=== PATIENT | female | born 1995 | race African-American/Black ===

== ENCOUNTER 2017-05-03 20:51 | Emergency (ER) | payer OTHER ==
[2017-05-03 21:02] VITALS: BMI 31.1
--- NOTE | 2017-05-03 21:57 | PDOC ---
History of Present Illness - General Chief Complaint: Edema Stated Complaint: 37 WKS PREG, SWELLING HANDS/FEET Time Seen by Provider: 05/03/17 21:54 History Source: Patient Exam Limitations: No Limitations - History of Present Illness Initial Comments: CHIEF COMPLAINT: 22 y/o afebrile female, , approximately 37 week female with due date of 05/21/17 c/o hand and feet swelling. HISTORY OF PRESENT ILLNESS: the patient states her hands are starting to hurt and tingle from the swelling and she can't seem to get her feet to decrease no matter what she does. She states she's had the swelling for a few weeks and mentioned it to her doctor who didn't seem concerned. She denies RODRIGUEZ, neck pain , changes in vision/hearing, n/v/d, CP, SOB, hemoptysis, abd pain, back pain, hematuria, dysuria, vaginal bleeding, calf pain. Her has been uneventful so far. NURSE EMERGENCY is Dr. Galeano. Vital signs on arrival are within normal limits. REVIEW OF SYSTEMS: GENERAL/CONSTITUTIONAL: Subjective fever/chills. No weakness. No weight change. HEAD, EYES, EARS, NOSE AND THROAT: No change in vision. No ear pain or discharge. No sore throat. CARDIOVASCULAR: No chest pain or shortness of breath. RESPIRATORY: No cough, wheezing, or hemoptysis. GASTROINTESTINAL: No abd pain, nausea, vomiting, diarrhea. GENITOURINARY: No dysuria, frequency, or change in urination. MUSCULOSKELETAL: +foot, leg and hand swelling. +hand pain. No neck or back pain. SKIN: No rash or easy bruising. NEUROLOGIC: No headache, vertigo, loss of consciousness, or loss of sensation. PHYSICAL EXAM: GENERAL: The patient is awake, alert, and fully oriented, in no acute distress. The patient is well appearing, in NAD or obvious discomfort. HEAD: Normal with no signs of trauma. ENT: Pupils equal, round and reactive to light, extraocular movements intact, sclera anicteric, conjunctiva clear. Neck supple. LUNGS: Clear to auscultation bilaterally. Normal excursion. No respiratory distress or use of accessory muscles. CV: RRR, S1/S2, no MRG. Cap refill < 2 sec. ABDOMEN: Soft, non-distended, non-tender even to deep palpation, no hepatomegaly or splenomegaly, no masses. EXTREMITIES: Normal range of motion. Non pitting edema to b/l LEs and hands. Full ROM of both feet, ankles, hands, wrists. NEUROLOGICAL: Normal speech, normal gait. CN II-XII grossly intact. PSYCH: Normal mood, normal affect. SKIN: Warm, dry, normal turgor, no rashes or lesions noted. Past History - Past Medical History Allergies/Adverse Reactions: Allergies Allergy/AdvReac Type Severity Reaction Status Date / Time cephalexin Allergy Verified 05/03/17 20:58 sulfamethoxazole Allergy Verified 05/03/17 20:58 [From Bactrim] trimethoprim [From Bactrim] Allergy Verified 05/03/17 20:58 Home Medications: Ambulatory Orders Acetaminophen [Tylenol] 650 mg PO Q4H PRN #20 tablet 09/22/16 Vit Calc,Iron,Folic [ Vitamins] 1 each PO DAILY #30 tablet 09/27 Psychiatric Problems: Yes (anxiety) - Psycho/Social/Smoking Cessation Hx Anxiety: Yes Suicidal Ideation: No Smoking History: Never smoked Have you smoked in the past 12 months: No Number of Cigarettes Smoked Daily: 2 Information on smoking cessation initiated: No Hx Alcohol Use: No Drug/Substance Use Hx: No Substance Use Type: None *Physical Exam - Vital Signs Last Vital Signs Temp Pulse Resp BP Pulse Ox 98.2 F 83 18 115/70 99 05/03/17 21:00 05/03/17 21:00 05/03/17 21:00 05/03/17 21:00 05/03/17 21:00 Medical Decision Making - Medical Decision Making A/P: 22 y/o afebrile female with hand and feet swelling. She is 37 weeks . She states she has had the swelling for a few weeks. Blood pressure is normal. Plan is as follows: 1. UA/culture to check for proteinuria 2. BGM UA negative for proteinuria BP normal Glucose 72. Spoke with Dr. Melo regarding the patient The patient will be sent upstairs to L&D for monitoring. *DC/Admit/Observation/Transfer Diagnosis at time of Disposition: Normal , Swelling of lower extremity during in third trimester, Swelling of both hands - Discharge Dispostion Condition at time of disposition: Good
[2017-05-03 22:48] LABS: URINE APPEARANCE CLEAR; URINE BILIRUBIN NEGATIVE (NEGATIVE); URINE BLOOD NEGATIVE (NEGATIVE); URINE COLOR LTYELLOW; URINE GLUCOSE (UA) NEGATIVE (NEGATIVE); URINE KETONE 1+ (NEGATIVE); URINE LEUK ESTERASE TRACE (NEGATIVE); URINE NITRITE NEGATIVE (NEGATIVE); URINE PROTEIN NEGATIVE (NEGATIVE); URINE UROBILINOGEN NEGATIVE E.U./dl (0.2-1.0)
[2017-05-03 22:50] LABS: URINE BACTERIA RARE /hpf (NONE SEEN); URINE MUCUS RARE; URINE RBC 1 /hpf (0-3); URINE WBC 11 /hpf (3-5)
[2017-05-04 01:35] VITALS: TEMP 98.1
[2017-05-04 01:49] VITALS: BP 108/73; PULSE 74
== END 2017-05-04 01:20 | disposition home or self-care (01) ==
LOC: JER 20:51
DX: O26.893 Other specified pregnancy related conditions, third trimester (principal); Z3A.37 37 weeks gestation of pregnancy; M79.89 Other specified soft tissue disorders
CPT/HCPCS: 81003; 81015; 87086; 99283-25

== ENCOUNTER 2017-05-14 23:10 | Inpatient (IN) | payer OTHER ==
[2017-05-15] MEDS ORDERED: DEXTROSE 5%-LACTATED RINGERS 500 ML IV SCH ×2 (00:10→01:10)
[2017-05-15] MEDS ORDERED: BUTORPHANOL TARTRATE 1 MG/ML VIAL IVPUSH ONE ×3 (01:10→11:15)
[2017-05-15] MEDS ORDERED: PROMETHAZINE HCL 25 MG/1 ML VIAL IVPUSH ONE ×3 (01:10→11:15)
[2017-05-15] MEDS ORDERED: AMPICILLIN - 100 ML IVPB ONE (02:00)
[2017-05-15 02:08] LABS: BASOPHIL 0.3 % (0-2.0); EOSINOPHIL 1.5 % (0-4.5); MCH 28.9 pg (25.7-33.7); MCHC 33.3 g/dl (32.0-36.0); MEAN CELL VOLUME 86.8 fl (80-96); MEAN PLT VOLUME 10.9 fl (7.5-11.1); NEUTROPHILS 59.9 % (42.8-82.8); PLATELET COUNT 183 K/MM3 (134-434); RDW 13.6 % (11.6-15.6); WHITE BLOOD COUNT 5.9 K/mm3 (4.0-10.0)
[2017-05-15 02:25] VITALS: BMI 31.7
[2017-05-15 02:29] LABS: INR 0.96 (0.82-1.09); PROTHROMBIN TIME (PATIENT) 10.6 SEC (9.98-11.88)
[2017-05-15 02:32] LABS: ACTIVATED PTT 28.3 SECONDS (26.9-34.4); ANION GAP 11 (8-16); CALCIUM 8.8 mg/dL (8.5-10.1); CO2 22 mmol/L (21-32); CREATININE 0.7 mg/dL (0.55-1.02); GLUCOSE,RANDOM 81 mg/dL (74-106)
[2017-05-15 03:12] LABS: HIV 1 & 2 AB NEGATIVE; HIV 1 AGp24 NEGATIVE
[2017-05-15] MEDS ORDERED: AMPICILLIN - 2 GM in SODIUM CHLORIDE 100 ML IVPB ONE (04:00)
--- NOTE | 2017-05-15 05:54 | HP ---
Admitting History and Physical - Admission Chief Complaint: srom @1030pm, clear History of Present Illness: 22 y/o G1 at 40 weeks comes for srom . She was a transfer from [facility]. 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's, CVA, Dementia, Migraine, Multiple Sclerosis, Peripheral Neuropathy, Parkinson's, Seizure, Syncope, TIA, Vertigo, Other Cardiovascular: No: AFIB, Aneurysm, Aortic Insufficiency, Aortic Stenosis, CAD, CHF, Deep Vein Thrombosis, HTN, Hyperlipdemia, [place], Mitral Insufficiency, Mitral Stenosis, Murmur, Pulmonary Hypertension, Other Pulmonary: No: Asthma, Bronchitis, Cancer, COPD, O2 Dependent, Pneumonia, Previously Intubated, Pulmonary Embolus, Pulmonary Fibrosis, Sleep Apnea, Other Gastrointestinal: No: Ascites, Cancer, Constipation, Crohn's Disease, Diverticulitis, Diverticulosis, Esophageal Varices, Gastritis, GERD, GI Bleed, Hemorrhoids, Hiatal Hernia, Inflamatory Bowel Disease, Irritable Bowel Disease, Pancreatitis, Peptic Ulcer Disease, Ulcerative Colitis, Other Hepatobiliary: No: Cirrhosis, Cholelithiasis, Cholecystitis, Choledocholithiasis , Hepatitis A, Hepatitis B, Hepatitis C, Other Reproductive: No: Ectopic , Endometriosis, Fibroids, PID, Polycystic Ovary Syndrome, Postmenopausal, Other ...: 1 ...Para: 0 Heme/Onc: No: Anemia, B12 Deficiency, Bleeding Disorder, Cancer, Current Chemotherapy, Current Radiation Therapy, Hemochromatosis, Hypercoaguable State, Myeloproliferative Synd, Sickle Cell Disease, Sickle Cell Trait, Thrombocytopenia, Other Infectious Disease: No: AIDS, C-Diff, Herpes Zoster, HIV, MRSA, STD's, Tuberculosis, VREF, Other Psych: No: Addictions, Anxiety, Bipolar, Depression, Panic, Psychosis, Schizophrenia, Other Musculoskeletal: No: Bursitis, Chronic low back pain, Hemiparesis, Hemiplegia, Osteoarthritis, Paraplegia, Other Rheumatology: No: Fibromyalgia, Gout, Lupus, Rheumatoid Arthritis, Sarcoidosis, Vasculitis, Other ENT: No: Allergic Rhinitis, Sinusitis, Other Endocrine: No: Jono's Disease, [place]'s Disease, Diabetes Insipidus, Diabetes Mellitus, Hyperparathyroidism, Hyperthyroidism, Hypothyroidism, Osteopenia, SIADH, Other Dermatology: No: Basal Cell, Cellulitis, Eczema, Melanoma, Psoriasis, Squamous Cell, Other - Past Surgical History Past Surgical History: No: None, AAA Repair, AICD, Amputation, Appendectomy, Arthrosocopy, AV Fistula/Graft, Bariatric Surgery, Breast Biopsy, Bypass, CABG, Carotid Endarterectomy, Cataract Removal, Cholecystectomy, Colectomy, Colonoscopy, Colostomy, Craniotomy, , Cystectomy, Hernia Repair, Hysterectomy, Ileal Conduit, Ileosotomy, Joint Replacement, Kidney Transplant, Laminectomy, Liver Transplant, Mastectomy, Nephrectomy, Oopherectomy, Orchiectomy, Permanent Pacemaker, Prostatectomy, Splenectomy, Stent, Thoracotomy , TURP, Tonsillectomy, Tubal Ligation, Upper Endoscopy, Valve Replacement, Vasectomy, Vein Stripping/Ligation - Advance Directives Advance Directives: No: Living Will, Health Care Proxy, DNR, Organ Donor, Tissue Donor, MOLST - Smoking History Smoking history: Never smoked Have you smoked in the past 12 months: No Aproximately how many cigarettes per day: 2 - Alcohol/Substance Use Hx Alcohol Use: No History of Substance Use: denies: None, Cocaine, Heroin, Marijuana, Prescription , Tranquilizers - Social History Usual Living Arrangement: No: Alone, With Spouse, With Parent, With Significant Other, With Child, Assisted Living, Prison, Other Home Medications - Allergies Allergies/Adverse Reactions: Allergies Allergy/AdvReac Type Severity Reaction Status Date / Time cephalexin Allergy Verified 05/03/17 20:58 sulfamethoxazole Allergy Verified 05/03/17 20:58 [From Bactrim] trimethoprim [From Bactrim] Allergy Verified 05/03/17 20:58 - Home Medications Home Medications: Ambulatory Orders Vit Calc,Iron,Folic [ Vitamins] 1 each PO DAILY #30 tablet 09/27 Review of Systems - Review of Systems Constitutional: reports: No Symptoms Eyes: reports: No Symptoms HENT: reports: No Symptoms Neck: reports: No Symptoms Cardiovascular: reports: No Symptoms Respiratory: reports: No Symptoms Gastrointestinal: reports: No Symptoms Genitourinary: reports: No Symptoms Breasts: reports: No Symptoms Reported Musculoskeletal: reports: No Symptoms Integumentary: reports: No Symptoms Neurological: reports: No Symptoms Endocrine: reports: No Symptoms Hematology/Lymphatic: reports: No Symptoms Psychiatric: reports: No Symptoms Physical Examination Vital Signs: Vital Signs Temperature 98.1 F 07/04/17 05:00 Pulse Rate 81 05/15/17 05:00 Respiratory Rate 20 05/15/17 05:00 Blood Pressure 127/75 05/15/17 05:00 O2 Sat by Pulse Oximetry (%) Constitutional: Yes: Well Nourished Eyes: Yes: WNL HENT: Yes: WNL Neck: Yes: WNL Cardiovascular: Yes: WNL Respiratory: Yes: WNL Gastrointestinal: Yes: WNL ...Rectal Exam: Yes: WNL Renal/: Yes: WNL Breast(s): Yes: WNL Musculoskeletal: Yes: WNL Extremities: Yes: WNL Integumentary: Yes: WNL Neurological: Yes: WNL ...Motor Strength: WNL Psychiatric: Yes: WNL Labs: CBC, BMP 05/15/17 01:45 05/15/17 01:45 Assessment/Plan as as above admit labs pain meds prn ambulate
[2017-05-15] MEDS: AMPICILLIN - 100 ML IVPB SCH ×3 (05:59→15:50)
[2017-05-15] MEDS ORDERED: ELECTROLYTE-148 SOLN 1,000 ML IV SCH (06:00)
--- NOTE | 2017-05-15 06:21 | PN ---
Ante-Partal Exam - Subjective Vital Signs: Vital Signs Temperature 98.1 F 05/15/17 05:00 Pulse Rate 81 05/15/17 05:00 Respiratory Rate 20 05/15/17 05:00 Blood Pressure 127/75 05/15/17 05:00 O2 Sat by Pulse Oximetry (%) Bleeding: No Headache: No Visual changes: No Right upper quadrant pain: No - Contractions Contractions: Yes Regularity: Regular Intensity: Moderate Monitor Mode: External - Exam during Labor Heart Rate: 150 Variability: Moderate Heart Rate Location: Midline Category: I Monitor Accelerations: Present Monitor Decelerations: None Exam: Vaginal Dilatation (cm): 4 Effacement (%): 90 Amniotic Membrane Status: Ruptured Nitrazine Test: Positive Amniotic Fluid: Clear Station: -2 - Assessment/Plan Assessment/Plan: as above continue care expect
[2017-05-15] MEDS ORDERED: OXYTOCIN 15 UNITS/ LR 250 ML 250 ML IVPB SCH (10:00)
--- NOTE | 2017-05-15 11:22 | PN ---
Progress Note, Labor Vaginal Exam #1 Labor Exam Date: 05/15/17 Labor Exam Time: 11:10 Heart Rate (range): 140 Dilatation: 7 Effacement (%): 100 Amniotic Membrane Status: Ruptured Presentation: Vertex/Position Station: 0 Remarks: FHR cat-1 UC q 2-3 min . 4.00am stadol 2 mg + phenrgan 25 mg iv 8.30 am stadol 1 mg + phenrgan 25 mg iv . 10.00 am Pitocin augmentation was started .. pt has received 3 doses of IV Ampicillin for Unknown GBS Selected Entries 05/15/17 05/15/17 10:00 11:00 Temperature 98.7 F Pulse Rate 102 H 101 H Blood Pressure 111/75 114/74 Laboratory Tests 05/15/17 05/15/17 05/15/17 01:45 01:45 01:45 WBC 5.9 RBC 4.02 Hgb 11.6 Hct 34.9 Plt Count 183 Neutrophils % 59.9 Lymphocytes % 25.7 Monocytes % 12.6 H Eosinophils % 1.5 Basophils % 0.3 INR 0.96 PTT (Actin FS) 28.3 Sodium 141 Potassium 4.0 Chloride 108 H Carbon Dioxide 22 BUN 11 Creatinine 0.7 Random Glucose 81 HIV 1&2 Antibody Screen HIV P24 Antigen 05/15/17 01:45 WBC RBC Hgb Hct Plt Count Neutrophils % Lymphocytes % Monocytes % Eosinophils % Basophils % INR PTT (Actin FS) Sodium Potassium Chloride Carbon Dioxide BUN Creatinine Random Glucose HIV 1&2 Antibody Screen Negative HIV P24 Antigen Negative Vaginal Exam #2 Labor Exam Date: 05/15/17 Labor Exam Time: 12:55 Heart Rate (range): 130-140 Dilatation: 10 Effacement (%): 100 Amniotic Membrane Status: Ruptured Presentation: Vertex/Position Station: +2 Remarks: fhr cat-1 uc q2 min pt pushing
[2017-05-15] MEDS ORDERED: BISACODYL 10 MG SUPP.RECT RC PRN (14:52)
[2017-05-15] MEDS ORDERED: BENZOCAINE 20% 57 GM BOTTLE TP PRN (14:52)
[2017-05-15] MEDS ORDERED: BENZOCAINE 28 GM HEMORRHOIDAL OINTMENT TP PRN (14:52)
[2017-05-15] MEDS ORDERED: WITCH HAZEL 50% (TUCKS) 40 PAD/JAR PAD TP PRN (14:52)
[2017-05-15] MEDS ORDERED: METHYLERGONOVINE MALEATE 0.2 MG/1 ML AMP IM PRN (14:52)
[2017-05-15] MEDS ORDERED: oxyCODONE HCL 5 MG TABLET PO PRN (14:52)
[2017-05-15] MEDS ORDERED: D5W-LR W/ 20 UNITS OXYTOCIN 1,000 ML IV SCH (15:00)
--- NOTE | 2017-05-15 15:04 | PN ---
Delivery - Delivery Vaginal Delivery: No Problems, Spontaneous Type of Anesthesia: Local Episiotomy/Laceration: 1st degree (vaginal laceration & Rt labial inner aspect 1st dgree tear sutured with chr catgut #2/0 . bladder catheterized & emptied . 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 Gender: Male Weight: 8 lb 1 oz Position: Left, OA Total Hours ROM (Hrs/Mins): 15h - 1 Minute Total Score: 9 5 Minutes Total Score: 9 - Feeding Plan Initial Plan: Elected not to breastfeed exclusively throughout hospitalization Remarks - Remarks Remarks: 22 yrs 40 weeks gestation, admitted by Dr Galeano for Leaking AF since 11.00pm 05/14/17 PNC transferred from [facility] to [address] [place] [address] GBS unknown rx prophylactically with 3 doses of iv Ampicillin stadol + phenergan was given for labor analgesia in divided doses Pitocin Augmentation was done B Neg, AP RHOGAM was taken, PP screen drawn . intrapartum course uneventful
[2017-05-15] MEDS ORDERED: TUBERCULIN PPD 5 TU/0.1ML SYRINGE (IN PATIENT USE ONLY) ID ONE (16:00)
[2017-05-15] MEDS: FERROUS SO4 325 MG TABLET (FP) PO SCH (17:31)
[2017-05-15] MEDS: ACETAMINOPHEN 325 MG TABLET (FP) PO PRN (22:18)
[2017-05-15] MEDS: IBUPROFEN 600 MG TABLET (FP) PO PRN (22:19)
[2017-05-16 07:41] LABS: BASOPHIL 0.3 % (0-2.0); EOSINOPHIL 0.8 % (0-4.5); MCH 29.5 pg (25.7-33.7); MCHC 33.4 g/dl (32.0-36.0); MEAN CELL VOLUME 88.4 fl (80-96); MEAN PLT VOLUME 9.9 fl (7.5-11.1); NEUTROPHILS 62.8 % (42.8-82.8); PLATELET COUNT 128 K/MM3 (134-434); RDW 13.2 % (11.6-15.6); WHITE BLOOD COUNT 9.5 K/mm3 (4.0-10.0)
--- NOTE | 2017-05-16 07:48 | PN ---
Post Progress Note - Subjective Subjective: c/o cramps Post Day: 1 Type of Delivery: Vital Signs: Vital Signs Temperature 98.1 F 05/16/17 06:00 Pulse Rate 70 05/16/17 06:00 Respiratory Rate 20 05/16/17 06:00 Blood Pressure 123/85 05/16/17 06:00 O2 Sat by Pulse Oximetry (%) 100 05/15/17 14:30 Breast Exam: Yes: Soft, Other (bottle & breast feeding ). No: Engorged Uterus: Yes: Fundus Firm, Fundus below umbilicus Lochia: Yes: Rubra Lochia, amount: Moderate Extremities: Yes: Calves non-tender Perineum: Yes: Laceration (perineum healing well ) Activity: Ambulating - Labs Labs: CBC WBC 5.9 K/mm3 (4.0-10.0) 05/15/17 01:45 RBC 4.02 M/mm3 (3.60-5.2) 05/15/17 01:45 Hgb 11.6 GM/dL (10.7-15.3) 05/15/17 01:45 Hct 34.9 % (32.4-45.2) 05/15/17 01:45 MCV 86.8 fl (80-96) 05/15/17 01:45 MCHC 33.3 g/dl (32.0-36.0) 05/15/17 01:45 RDW 13.6 % (11.6-15.6) 05/15/17 01:45 Plt Count 183 K/MM3 (134-434) 05/15/17 01:45 MPV 10.9 fl (7.5-11.1) 05/15/17 01:45 Neutrophils % 59.9 % (42.8-82.8) 05/15/17 01:45 Lymphocytes % 25.7 % (8-40) 05/15/17 01:45 Monocytes % 12.6 % (3.8-10.2) H 05/15/17 01:45 Eosinophils % 1.5 % (0-4.5) 05/15/17 01:45 Basophils % 0.3 % (0-2.0) 05/15/17 01:45 Assessment/Plan stable. today cbc pending
[2017-05-16] MEDS: FERROUS SO4 325 MG TABLET (FP) PO SCH ×2 (07:53→17:22)
[2017-05-16] MEDS: PRENATAL VITAMINS W/ FOLIC ACID TABLET (FP) PO SCH (10:07)
[2017-05-16] MEDS: IBUPROFEN 600 MG TABLET (FP) PO PRN (21:32)
[2017-05-16] MEDS: ACETAMINOPHEN 325 MG TABLET (FP) PO PRN (21:33)
[2017-05-16] MEDS ORDERED: SENNOSIDES/DOCUSATE COMBO (SENNA PLUS) TABLET (UD) PO PRN (22:00)
[2017-05-17] MEDS: PRENATAL VITAMINS W/ FOLIC ACID TABLET (FP) PO SCH (09:15)
[2017-05-17] MEDS: FERROUS SO4 325 MG TABLET (FP) PO SCH (09:15)
--- NOTE | 2017-05-17 09:49 | DS ---
Physical Exam-CLINICAL PROGRAM CONSULTANT Vital Signs: Vital Signs Temperature 97.9 F 05/16/17 22:00 Pulse Rate 83 05/16/17 22:00 Respiratory Rate 18 05/16/17 22:00 Blood Pressure 132/81 05/16/17 22:00 O2 Sat by Pulse Oximetry (%) 100 05/15/17 14:30 Constitutional: Yes: Well Nourished Eyes: Yes: Conjunctiva Clear Neck: Yes: Supple Cardiovascular: Yes: Regular Rate and Rhythm Respiratory: Yes: Regular, CTA Bilaterally Gastrointestinal: Yes: Normal Bowel Sounds Vaginal Exam: Yes: Normal Cervix: Yes: Normal Uterus: Yes: Firm ....Post : Yes: Uterus firm, Moderate lochia serosa Breast(s): Yes: WNL Musculoskeletal: Yes: WNL Extremities: Yes: WNL Neurological: Yes: Alert, Oriented ...Motor Strength: WNL Psychiatric: Yes: Alert, Oriented Labs: CBC, BMP 05/16/17 06:00 05/15/17 01:45 Delivery - Delivery Vaginal Delivery: No Problems, Spontaneous Type of Anesthesia: Local Episiotomy/Laceration: 1st degree (vaginal laceration & Rt labial inner aspect 1st dgree tear sutured with chr catgut #2/0 . bladder catheterized & emptied . 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: No Gender: Male Weight: 8 lb 1 oz Position: Left, OA Total Hours ROM (Hrs/Mins): 15h - 1 Minute Total Score: 9 5 Minutes Total Score: 9 - [place] Feeding Plan Initial Plan: Elected not to breastfeed exclusively throughout hospitalization Discharge Summary Reason For Visit: LABOR ADMIT Current Active Problems 40 weeks gestation of (Acute) GBS screening not performed (Acute) Normal spontaneous vaginal delivery (Acute) SROM (spontaneous rupture of membranes) (Acute) Procedures: Principal: Normal spontaneous vaginal delivery Hospital Course: Routine care Condition: Stable - Instructions Diet, Activity, Other Instructions: Post Instructions DIET: Continue good diet high in protein, calcium, and iron rich foods. Drink at least eight (8) glasses of water daily in addition to other fluids. ct Regular diet MEDICATIONS: Continue vitamins and iron as previously directed. Motrin and Tylenol may be taken for minor discomfort. ACTIVITY: Mild to moderate exercise may be started in two (2) weeks. Take frequent rest periods. Resume normal activity after six (6) week check up. WOUND CARE OF OPERATIVE SITE: Continue use of perineal bottle until vaginal discharge stops. Keep area clean. Shower daily. Keep abdominal wound dry. Report any drainage or redness to physician. Tub baths, tampons and douches are not permitted for [address] Breast feeding & or Bottle feeding BREAST CARE: (For those that are not breast feeding): If engorgement occurs: Wear tight fitting bra. Take Tylenol or Motrin for pain. Apply cold packs (ice in bags to each breast ) FAMILY PLANNING: There are many control alternatives to pursue and they should be discussed at your first office visit. You may resume sexual activity after your six (6) week check up. (Remember, breast feeding is not a contraceptive) NEXT PHYSICIAN APPOINTMENT: Be certain to call for a six (6) week appointment, unless otherwise directed. Call Clinic or got to Emergency Dept if you have any of the following: Heavy vaginal bleeding Painful urination Leg pain Unusual odor noted to vaginal bleeding High fever Red streaking noted on breast Referrals: Fay Valdovinos MD [Staff Physician] - Disposition: HOME - Home Medications Comprehensive Discharge Medication List: Ambulatory Orders Vit Calc,Iron,Folic [ Vitamins] 1 each PO DAILY #30 tablet 09/27 Acetaminophen [Tylenol .Regular Strength -] 650 mg PO Q3H PRN #0 tablet Ferrous Sulfate [Feosol] 325 mg PO BIDWM #60 tab 05/15/17 Ibuprofen [Motrin -] 200 mg PO Q4H PRN #0 tablet 05/15/17 Vitamins (Sjr) - 1 tab PO DAILY #30 tablet 05/15/17 Witch Kia 50% (Tucks) [Tucks Pads -] 1 pad TP PRN PRN #0 pad 05/15/17
[2017-05-17 12:06] VITALS: BP 133/81; PULSE 86; TEMP 99
== END 2017-05-17 11:55 | disposition home or self-care (01) | DRG 560 ==
LOC: JDEL 23:10 → JLDR 05-15 00:10 → J3W 05-15 15:02
PROVIDERS: ADMIT Obstetrics & Gynecology; ATTEND Obstetrics & Gynecology
PROC: 10E0XZZ Delivery of Products of Conception, External Approach (ICD-10-PCS; principal; 2017-05-15)
PROC: 0HQ9XZZ Repair Perineum Skin, External Approach (ICD-10-PCS; 2017-05-15)
DX: O48.0 Post-term pregnancy (principal); O99.344 Other mental disorders complicating childbirth; O70.0 First degree perineal laceration during delivery; F41.9 Anxiety disorder, unspecified; O75.89 Other specified complications of labor and delivery; J45.909 Unspecified asthma, uncomplicated; Z3A.40 40 weeks gestation of pregnancy; Z37.0 Single live birth
CPT/HCPCS: 36415; 59409; 80048; 85025; 85461; 85610; 85730; 86593; 86762; 86850; 86870; 86900; 86901; 86902; 86999; 87340; 87389

== ENCOUNTER 2019-01-22 23:45 | Observation (INO) | payer OTHER ==
[2019-01-22 23:54] VITALS: BMI 17.6
--- NOTE | 2019-01-23 00:01 | PDOC ---
*Physical Exam - Vital Signs Last Vital Signs Temp Pulse Resp BP Pulse Ox 98.6 F 72 20 100/61 99 01/22/19 23:53 01/22/19 23:53 01/22/19 23:53 01/22/19 23:53 01/22/19 23:53 ED Treatment Course - LABORATORY CBC & Chemistry Diagram: 01/23/19 00:29 01/23/19 00:29 Medical Decision Making - Medical Decision Making 01/23/19 00:01 Patient seen by the advanced practice provider under my direct supervision. Ancillary testing reviewed as necessary. I agree with plan as outlined by the advanced practice provider. *DC/Admit/Observation/Transfer Diagnosis at time of Disposition: Enteritis, Intractable vomiting - Referrals - Patient Instructions - Post Discharge Activity
[2019-01-23] MEDS ORDERED: SODIUM CHLORIDE 1,000 ML IV STA ×2 (00:17→02:14)
[2019-01-23] MEDS ORDERED: ACETAMINOPHEN 1000 MG/100 ML VIAL (NON FORMULARY) IVPB ONE (00:17)
[2019-01-23] MEDS ORDERED: ONDANSETRON 4 MG/2 ML VIAL IVPUSH ONE ×2 (00:17→04:10)
[2019-01-23] MEDS ORDERED: ONDANSETRON 4 MG/2 ML VIAL ONE ×2 (00:23→04:32)
[2019-01-23] MEDS ORDERED: ACETAMINOPHEN INJECTION 100 ML IVPB ONE (00:24)
--- NOTE | 2019-01-23 00:28 | PDOC ---
History of Present Illness - General Chief Complaint: Nausea/Vomiting Stated Complaint: NAUSEA,VOMITING Time Seen by Provider: 01/22/19 23:56 History Source: Patient Exam Limitations: No Limitations Past History - Past Medical History Allergies/Adverse Reactions: Allergies Allergy/AdvReac Type Severity Reaction Status Date / Time cephalexin Allergy Verified 01/22/19 23:52 sulfamethoxazole Allergy Verified 01/22/19 23:52 [From Bactrim] trimethoprim [From Bactrim] Allergy Verified 01/22/19 23:52 Home Medications: Ambulatory Orders Vit Calc,Iron,Folic [ Vitamins] 1 each PO DAILY #30 tablet 09/27 Acetaminophen [Tylenol .Regular Strength -] 650 mg PO Q3H PRN #0 tablet Ferrous Sulfate [Feosol] 325 mg PO BIDWM #60 tab 05/15/17 Ibuprofen [Motrin -] 200 mg PO Q4H PRN #0 tablet 05/15/17 Vitamins (Sjr) - 1 tab PO DAILY #30 tablet 05/15/17 Witch Kia 50% (Tucks) [Tucks Pads -] 1 pad TP PRN PRN #0 pad 05/15/17 Asthma: Yes Cancer: No Cardiac Disorders: No Diabetes: No HTN: No Psychiatric Problems: Yes (anxiety) Seizures: No Thyroid Disease: No - Suicide/Smoking/Psychosocial Hx Smoking History: Never smoked Have you smoked in the past 12 months: No Number of Cigarettes Smoked Daily: 2 Information on smoking cessation initiated: No Hx Alcohol Use: No Drug/Substance Use Hx: No Substance Use Type: None Hx Substance Use Treatment: No *Physical Exam - Vital Signs Last Vital Signs Temp Pulse Resp BP Pulse Ox 98.6 F 72 20 100/61 99 01/22/19 23:53 01/22/19 23:53 01/22/19 23:53 01/22/19 23:53 01/22/19 23:53 - Physical Exam General Appearance: No: Apparent Distress Respiratory/Chest: positive: Lungs Clear, Normal Breath Sounds. negative: Respiratory Distress Cardiovascular: positive: Regular Rhythm, Regular Rate, S1, S2. negative: Murmur Female Pelvic Exam: positive: normal external exam, normal adnexa. negative: CMT, discharge, lesions, adnexal tenderness Gastrointestinal/Abdominal: positive: Tender (generalized TTP along abdomen), Soft. negative: Distended, Guarding, Rebound, Hernia, Mass Musculoskeletal: negative: CVA Tenderness Integumentary: positive: Normal Color Neurologic: positive: Alert, Normal Mood/Affect Moderate Sedation - Procedure Monitoring Vital Signs: Procedure Monitoring Vital Signs Temperature 98.6 F 01/22/19 23:53 Pulse Rate 72 01/22/19 23:53 Respiratory Rate 20 01/22/19 23:53 Blood Pressure 100/61 01/22/19 23:53 O2 Sat by Pulse Oximetry (%) 99 01/22/19 23:53 ED Treatment Course - LABORATORY CBC & Chemistry Diagram: 01/23/19 00:29 01/23/19 00:29 Medical Decision Making - Medical Decision Making 23 y/o F hx of asthma presents with NBNB emesis since around 7 PM last night along with watery diarrhea and generalized abdominal pain. Mentions her son had similar symptoms few days ago. Denies possible bad food exposure, taking antibiotics, fever, sob, cp, urinary complaints. Denies any history of abdominal surgeries. Denies alcohol use. Consider gastroenteritis Plan: Labs, IVF, Tylenol, Zofran, reassess 01/23/19 00:25 Patient not feeling better after IV Tylenol and Zofran Given Morphine and Reglan and now resting comfortably Labs notable for marked leukocytosis Pending CT A/P to r/o acute pathology 01/23/19 01:46 CT A/P showed nonspecific enteritis; also raised concern for possible R adnexal hydrosalpinx or pyosalpinx Pelvic exam done and unremarkable Re-attempted PO challenge but patient failed to keep down water Will admit patient for intractable vomiting 01/23/19 04:12 *DC/Admit/Observation/Transfer Diagnosis at time of Disposition: Enteritis Intractable vomiting Qualifiers: Vomiting type: unspecified Nausea presence: with nausea Qualified Code(s): R11.2 - Nausea with vomiting, unspecified - Discharge Dispostion Condition at time of disposition: Stable Decision to Admit order: Yes - Referrals - Patient Instructions - Post Discharge Activity
[2019-01-23 00:45] LABS: BASO % 0.1 % (0-2.0); EOS % 0.1 % (0-4.5); HEMATOCRIT 45.5 % (32.4-45.2); HEMOGLOBIN 15.5 GM/dL (10.7-15.3); LYMPH % 3.9 % (8-40); MCH 30.9 pg (25.7-33.7); MEAN CELL VOLUME 90.7 fl (80-96); MEAN PLT VOLUME 9.3 fl (7.5-11.1); MONO % 6.6 % (3.8-10.2); NEUT % 89.3 % (42.8-82.8); PLATELET COUNT 250 K/MM3 (134-434); RBC 5.01 M/mm3 (3.60-5.2); RDW 13.8 % (11.6-15.6); WHITE BLOOD COUNT 18.2 K/mm3 (4.0-10.0)
[2019-01-23] MEDS ORDERED: METOCLOPRAMIDE HCL INJECTION 10 MG/2 ML VIAL IVPB ONE (01:01)
[2019-01-23] MEDS ORDERED: morphine CARPU-JECT 4 MG/1 ML DISP.SYRIN IVPUSH ONE (01:01)
[2019-01-23 01:10] LABS: ALBUMIN 4.5 g/dl (3.4-5.0); ALK PHOS 53 U/L (45-117); ANION GAP 7 MMOL/L (8-16); BILIRUBIN,TOTAL 1.4 mg/dL (0.2-1); BLOOD UREA NITROGEN 9 mg/dL (7-18); CALCIUM 9.8 mg/dL (8.5-10.1); CHLORIDE 107 mmol/L (98-107); CO2 24 mmol/L (21-32); CREATININE 0.8 mg/dL (0.55-1.3); GLUCOSE,RANDOM 173 mg/dL (74-106); LIPASE 160 U/L (73-393); POTASSIUM 4.1 mmol/L (3.5-5.1); SGOT/AST 20 U/L (15-37); SGPT/ALT 18 U/L (13-61); SODIUM 137 mmol/L (136-145); TOT PROT 8.3 g/dl (6.4-8.2)
[2019-01-23] MEDS ORDERED: morphine SULFATE 4 MG/ML VIAL ONE (01:11)
[2019-01-23] MEDS ORDERED: METOCLOPRAMIDE HCL INJECTION 10 MG/2 ML VIAL ONE (01:11)
[2019-01-23 03:03] LABS: INR 1.18 (0.83-1.09); PROTHROMBIN TIME (PATIENT) 13.9 SEC (9.7-13.0)
--- NOTE | 2019-01-23 04:36 | HP ---
CHIEF COMPLAINT: nausea, vomiting, diarrhea PCP: none HISTORY OF PRESENT ILLNESS: 23 y/o F hx of presents with NBNB emesis since around 7 PM last night along with watery diarrhea and generalized abdominal pain. Mentions her son had similar symptoms few days ago. Denies possible bad food exposure, taking antibiotics, recent travel. Denied any heart disease. ER course was notable for: (1) IV fluid (2) zofran (3) A/P CT scan Recent Travel:no PAST MEDICAL HISTORY: asthma PAST SURGICAL HISTORY: no Social History: Smoking: no Alcohol: no Drugs: no Family History: none Allergies cephalexin Allergy (Verified 01/22/19 23:52) sulfamethoxazole [From Bactrim] Allergy (Verified 01/22/19 23:52) trimethoprim [From Bactrim] Allergy (Verified 01/22/19 23:52) HOME MEDICATIONS: Home Medications Medication Instructions Recorded Vit Calc,Iron,Folic 1 each PO DAILY #30 tablet 09/22/16 [ Vitamins] Acetaminophen [Tylenol .Regular 650 mg PO Q3H PRN #0 tablet 05/15/17 Strength -] Ferrous Sulfate [Feosol] 325 mg PO BIDWM #60 tab 05/15/17 Ibuprofen [Motrin -] 200 mg PO Q4H PRN #0 tablet 05/15/17 Vitamins (Sjr) - 1 tab PO DAILY #30 tablet 05/15/17 Witch Kia 50% (Tucks) [Tucks 1 pad TP PRN PRN #0 pad 05/15/17 Pads -] REVIEW OF SYSTEMS CONSTITUTIONAL: Absent: fever, chills, diaphoresis, generalized weakness, malaise, loss of appetite, weight change HEENT: Absent: rhinorrhea, nasal congestion, throat pain, throat swelling, difficulty swallowing, mouth swelling, ear pain, eye pain, visual changes CARDIOVASCULAR: Absent: chest pain, syncope, palpitations, irregular heart rate, lightheadedness , peripheral edema RESPIRATORY: Absent: cough, shortness of breath, dyspnea with exertion, orthopnea, wheezing, stridor, hemoptysis GASTROINTESTINAL: Absent: abdominal distension, constipation, melena, hematochezia present- abdominal pain, nausea, vomiting, diarrhea, GENITOURINARY: Absent: dysuria, frequency, urgency, hesitancy, hematuria, flank pain, genital pain MUSCULOSKELETAL: Absent: myalgia, arthralgia, joint swelling, back pain, neck pain SKIN: Absent: rash, itching, pallor HEMATOLOGIC/IMMUNOLOGIC: Absent: easy bleeding, easy bruising, lymphadenopathy, frequent infections ENDOCRINE: Absent: unexplained weight gain, unexplained weight loss, heat intolerance, cold intolerance NEUROLOGIC: Absent: headache, focal weakness or paresthesias, dizziness, unsteady gait, seizure, mental status changes, bladder or bowel incontinence PSYCHIATRIC: Absent: anxiety, depression, suicidal or homicidal ideation, hallucinations. PHYSICAL EXAMINATION Vital Signs - 24 hr 01/22/19 23:53 Temperature 98.6 F Pulse Rate 72 Respiratory 20 Rate Blood Pressure 100/61 O2 Sat by Pulse 99 Oximetry (%) GENERAL: Awake, alert, and fully oriented, in no acute distress. HEAD: Normal with no signs of trauma. EYES: Pupils equal, round and reactive to light, extraocular movements intact, sclera anicteric, conjunctiva clear. No lid lag. EARS, NOSE, THROAT: Ears normal, nares patent, oropharynx clear without exudates. Moist mucous membranes. NECK: Normal range of motion, supple without lymphadenopathy, JVD, or masses. LUNGS: Breath sounds equal, clear to auscultation bilaterally. No wheezes, and no crackles. No accessory muscle use. HEART: Regular rate and rhythm, normal S1 and S2 without murmur, rub or gallop. ABDOMEN: Soft, nontender, not distended, normoactive bowel sounds, no guarding, no rebound, no masses. MUSCULOSKELETAL: Normal range of motion at all joints. No bony deformities or tenderness. No CVA tenderness. UPPER EXTREMITIES: 2+ pulses, warm, well-perfused. No cyanosis. No clubbing. No peripheral edema. LOWER EXTREMITIES: 2+ pulses, warm, well-perfused. No calf tenderness. No peripheral edema. NEUROLOGICAL: Cranial nerves II-XII intact. Normal speech. Normal gait. PSYCHIATRIC: Cooperative. Good eye contact. Appropriate mood and affect. SKIN: Warm, dry, normal turgor, no rashes or lesions noted, normal capillary refill. Laboratory Results - last 24 hr 01/23/19 01/23/19 01/23/19 00:29 00:29 00:29 WBC 18.2 H RBC 5.01 Hgb 15.5 H Hct 45.5 H D MCV 90.7 MCH 30.9 MCHC 34.0 RDW 13.8 Plt Count 250 D MPV 9.3 Absolute Neuts (auto) 16.2 H Neutrophils % 89.3 H D Lymphocytes % 3.9 L D Monocytes % 6.6 Eosinophils % 0.1 D Basophils % 0.1 Nucleated RBC % 0 PT with INR INR PTT (Actin FS) Sodium 137 Potassium 4.1 Chloride 107 Carbon Dioxide 24 Anion Gap 7 L BUN 9 Creatinine 0.8 Creat Clearance w eGFR > 60 Random Glucose 173 H Calcium 9.8 Total Bilirubin 1.4 H AST 20 ALT 18 Alkaline Phosphatase 53 Total Protein 8.3 H Albumin 4.5 Lipase 160 Serum , Qual Negative Blood Type Antibody Screen 01/23/19 01/23/19 02:37 02:37 WBC RBC Hgb Hct MCV MCH MCHC RDW Plt Count MPV Absolute Neuts (auto) Neutrophils % Lymphocytes % Monocytes % Eosinophils % Basophils % Nucleated RBC % PT with INR 13.90 H INR 1.18 H PTT (Actin FS) 22.0 L Sodium Potassium Chloride Carbon Dioxide Anion Gap BUN Creatinine Creat Clearance w eGFR Random Glucose Calcium Total Bilirubin AST ALT Alkaline Phosphatase Total Protein Albumin Lipase Serum , Qual Blood Type B NEGATIVE Antibody Screen Negative CT A/P showed nonspecific enteritis; also raised concern for possible R adnexal hydrosalpinx or pyosalpinx ASSESSMENT/PLAN: #Acute gastroenteritis with neutrophilic leukocytosis - enteritis seen on abdominal/pelvic CT #R/o right adnexal abscess #Intermittent asthma -observation -IV fluid hydration -zofran IV prn if nausea or vomiting -stool culture, wbc -blood cultures -transvaginal u/s to r/o right adnexal abscess -levaquin x1 -flagyl x1 -antibiotics pending definitive r/o of right adnexal pyosalpinx/abscess -ekg - check qtc since getting levaquin and zofran -advance diet - clear liquids -albuterol neb prn for asthma history -SCDs for dvt ppx Visit type - Emergency Visit Emergency Visit: Yes ED Registration Date: 01/23/19 Care time: The patient presented to the Emergency Department on the above date and was hospitalized for further evaluation of their emergent condition. - New Patient This patient is new to me today: Yes Date on this admission: 01/23/19 - Critical Care Critical Care patient: No
[2019-01-23] MEDS ORDERED: ONDANSETRON 4 MG/2 ML VIAL IVPB PRN (04:40)
[2019-01-23] MEDS ORDERED: ONDANSETRON 4 MG/2 ML VIAL IVPUSH PRN (04:42)
[2019-01-23] MEDS ORDERED: SODIUM CHLORIDE 1,000 ML IV SCH (04:45)
[2019-01-23 07:05] LABS: URINE APPEARANCE CLEAR; URINE BILIRUBIN NEGATIVE (<2.0 mg/dL); URINE COLOR LTYELLOW; URINE GLUCOSE (UA) NEGATIVE (NEGATIVE); URINE KETONE 1+ (NEGATIVE); URINE LEUK ESTERASE NEGATIVE (NEGATIVE); URINE NITRITE NEGATIVE (NEGATIVE); URINE PROTEIN NEGATIVE (NEGATIVE); URINE UROBILINOGEN NEGATIVE mg/dL (0.2-1.0)
[2019-01-23] MEDS ORDERED: FERROUS SO4 325 MG TABLET (FP) PO SCH (08:00)
[2019-01-23] MEDS ORDERED: PT OWN MED DRAWER 7, Y5N ONE (09:11)
[2019-01-23 09:20] LABS: BILIRUBIN,DIRECT 0.3 mg/dL (0.0-0.2)
[2019-01-23] MEDS ORDERED: PRENATAL VITAMINS W/ FOLIC ACID TABLET (FP) PO SCH ×2 (10:00)
--- NOTE | 2019-01-23 10:49 | EKG ---
Test Reason : Blood Pressure : / mmHG Vent. Rate : 080 BPM Atrial Rate : 090 BPM P-R Int : 154 ms QRS Dur : 078 ms QT Int : 366 ms P-R-T Axes : 060 048 048 degrees QTc Int : 422 ms SINUS RHYTHM WITH MARKED SINUS ARRHYTHMIA NO PREVIOUS ECGS AVAILABLE Confirmed by TEDDY VIZCAINO MD ([id number]) on 01/23/2019 10:48:35 AM Referred By: Confirmed By:TEDDY VIZCAINO MD
--- NOTE | 2019-01-23 13:17 | PN ---
Physical Exam: SUBJECTIVE: Patient seen and examined at bedside in ED. Symptoms greatly improved, residual nausea and mild abd pain, no further vomiting or diarrhea. OBJECTIVE: Vital Signs Period Temp Pulse Resp BP Sys/Antunez Pulse Ox Last 24 Hr 98.2 F-98.6 F 72-92 16-20 100-118/61-71 98-100 GENERAL: A&Ox3, NAD HEENT: NC/AT, PERRLA, EOMI, MMM NECK: Trachea midline, full range of motion, supple. LUNGS: CTA b/l HEART: RRR no m/r/g ABDOMEN: +bs, soft, NT, ND EXTREMITIES: 2+ pulses, warm, well-perfused, no edema. 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 SKIN: Warm, dry, normal turgor, no rashes or lesions noted Laboratory Results - last 24 hr 01/23/19 01/23/19 01/23/19 00:29 00:29 00:29 WBC 18.2 H RBC 5.01 Hgb 15.5 H Hct 45.5 H D MCV 90.7 MCH 30.9 MCHC 34.0 RDW 13.8 Plt Count 250 D MPV 9.3 Absolute Neuts (auto) 16.2 H Neutrophils % 89.3 H D Lymphocytes % 3.9 L D Monocytes % 6.6 Eosinophils % 0.1 D Basophils % 0.1 Nucleated RBC % 0 PT with INR INR PTT (Actin FS) Sodium 137 Potassium 4.1 Chloride 107 Carbon Dioxide 24 Anion Gap 7 L BUN 9 Creatinine 0.8 Creat Clearance w eGFR > 60 Random Glucose 173 H Calcium 9.8 Total Bilirubin 1.4 H Direct Bilirubin 0.3 H AST 20 ALT 18 Alkaline Phosphatase 53 Total Protein 8.3 H Albumin 4.5 Lipase 160 Serum , Qual Negative Urine Color Urine Appearance Urine pH Ur Specific [place] Urine Protein Urine Glucose (UA) Urine Ketones Urine Blood Urine Nitrite Urine Bilirubin Urine Urobilinogen Ur Leukocyte Esterase Blood Type Antibody Screen 01/23/19 01/23/19 01/23/19 02:37 02:37 05:30 WBC RBC Hgb Hct MCV MCH MCHC RDW Plt Count MPV Absolute Neuts (auto) Neutrophils % Lymphocytes % Monocytes % Eosinophils % Basophils % Nucleated RBC % PT with INR 13.90 H INR 1.18 H PTT (Actin FS) 22.0 L Sodium Potassium Chloride Carbon Dioxide Anion Gap BUN Creatinine Creat Clearance w eGFR Random Glucose Calcium Total Bilirubin Direct Bilirubin AST ALT Alkaline Phosphatase Total Protein Albumin Lipase Serum , Qual Urine Color Ltyellow Urine Appearance Clear Urine pH 6.0 Ur Specific [place] 1.010 Urine Protein Negative Urine Glucose (UA) Negative Urine Ketones 1+ H Urine Blood Negative Urine Nitrite Negative Urine Bilirubin Negative Urine Urobilinogen Negative Ur Leukocyte Esterase Negative Blood Type B NEGATIVE Antibody Screen Negative Active Medications Generic Name Dose Route Start Last Admin Trade Name Freq PRN Reason Stop Dose Admin Ferrous Sulfate 325 mg 01/23/19 08:00 01/23/19 09:24 Feosol - PO 325 mg BIDWM MANUEL Administration Sodium Chloride 1,000 mls @ 75 mls/hr 01/23/19 04:45 01/23/19 05:13 Normal Saline - IV 75 mls/hr ASDIR MANUEL Administration Ondansetron HCl 4 mg 01/23/19 04:42 Zofran Injection IVPUSH Q6H PRN NAUSEA Multivit/Folic Acid/Iron 1 tab 01/23/19 10:00 01/23/19 09:24 Vitamins (Sjr) - PO 1 tab DAILY MANUEL Administration ASSESSMENT/PLAN: 23 y/o F p/w NBNB emesis and severe abd pain since 7pm last night #abd pain/nausea/vomiting/diarrhea -CT a/p showing non-specific enteritis, also showing possible R adnexal hydrosalpinx or pyosalpinx -TVUS showing only b/l simple adnexal cysts, no acute lesions or free fluid -Zofran PRN -NS 75 -symptoms resolving w/ conservative treatment -clear liquid diet adv as tolerated -recent sick contact (son) w/ similar presentation, self-resolved -monitor for fever -no further ABx at this time #FEN -NS 75 -monitor and correct electrolytes -clear liquid, adv as tolerated #PPx -DVT: SCDs -GI: not indicated #code -full #dispo -cont obs -can discharge if tolerating regular diet, primary care f/u Visit type - Emergency Visit Emergency Visit: Yes ED Registration Date: 01/23/19 Care time: The patient presented to the Emergency Department on the above date and was hospitalized for further evaluation of their emergent condition. - New Patient This patient is new to me today: Yes Date on this admission: 01/23/19 - Critical Care Critical Care patient: No
[2019-01-23 14:38] VITALS: BP 111/75; PULSE 100; TEMP 98.4
--- NOTE | 2019-01-23 16:44 | DS ---
Physical Exam: SUBJECTIVE: Patient seen and examined at bedside in ED. Symptoms greatly improved, residual nausea and mild abd pain, no further vomiting or diarrhea. OBJECTIVE: Vital Signs Period Temp Pulse Resp BP Sys/Antunez Pulse Ox Last 24 Hr 98.2 F-98.6 F 72-100 16-20 100-118/61-75 98-100 PHYSICAL EXAM GENERAL: A&Ox3, NAD HEENT: NC/AT, PERRLA, EOMI, MMM NECK: Trachea midline, full range of motion, supple. LUNGS: CTA b/l HEART: RRR no m/r/g ABDOMEN: +bs, soft, NT, ND EXTREMITIES: 2+ pulses, warm, well-perfused, no edema. 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 SKIN: Warm, dry, normal turgor, no rashes or lesions noted LABS Laboratory Results - last 24 hr 01/23/19 01/23/19 01/23/19 00:29 00:29 00:29 WBC 18.2 H RBC 5.01 Hgb 15.5 H Hct 45.5 H D MCV 90.7 MCH 30.9 MCHC 34.0 RDW 13.8 Plt Count 250 D MPV 9.3 Absolute Neuts (auto) 16.2 H Neutrophils % 89.3 H D Lymphocytes % 3.9 L D Monocytes % 6.6 Eosinophils % 0.1 D Basophils % 0.1 Nucleated RBC % 0 PT with INR INR PTT (Actin FS) Sodium 137 Potassium 4.1 Chloride 107 Carbon Dioxide 24 Anion Gap 7 L BUN 9 Creatinine 0.8 Creat Clearance w eGFR > 60 Random Glucose 173 H Calcium 9.8 Total Bilirubin 1.4 H Direct Bilirubin 0.3 H AST 20 ALT 18 Alkaline Phosphatase 53 Total Protein 8.3 H Albumin 4.5 Lipase 160 Serum , Qual Negative Urine Color Urine Appearance Urine pH Ur Specific [place] Urine Protein Urine Glucose (UA) Urine Ketones Urine Blood Urine Nitrite Urine Bilirubin Urine Urobilinogen Ur Leukocyte Esterase Blood Type Antibody Screen 01/23/19 01/23/19 01/23/19 02:37 02:37 05:30 WBC RBC Hgb Hct MCV MCH MCHC RDW Plt Count MPV Absolute Neuts (auto) Neutrophils % Lymphocytes % Monocytes % Eosinophils % Basophils % Nucleated RBC % PT with INR 13.90 H INR 1.18 H PTT (Actin FS) 22.0 L Sodium Potassium Chloride Carbon Dioxide Anion Gap BUN Creatinine Creat Clearance w eGFR Random Glucose Calcium Total Bilirubin Direct Bilirubin AST ALT Alkaline Phosphatase Total Protein Albumin Lipase Serum , Qual Urine Color Ltyellow Urine Appearance Clear Urine pH 6.0 Ur Specific [place] 1.010 Urine Protein Negative Urine Glucose (UA) Negative Urine Ketones 1+ H Urine Blood Negative Urine Nitrite Negative Urine Bilirubin Negative Urine Urobilinogen Negative Ur Leukocyte Esterase Negative Blood Type B NEGATIVE Antibody Screen Negative HOSPITAL COURSE: Date of Admission:01/23/19 Patient is a 23 y/o F p/w NBNB emesis and severe abd pain since 7pm the night prior to admission. CT a/p showed non-specific enteritis and was concerning for R adnexal pathology, however TVUS found only simple b/l ovarian cysts and no acute pathology. Patient was treated with bowel rest, IVF, anti-emetics, and slow re-introduction of diet. Symptomatically improved and tolerated PO. Was discharged with instructions for primary care followup. Date of Discharge: 01/23/19 Minutes to complete discharge: 40 Discharge Summary Reason For Visit: ENTERITIS INTRACTABLE VOMITING Current Active Problems Enteritis (Acute) Intractable vomiting (Acute) Condition: Stable - Instructions Diet, Activity, Other Instructions: You were hospitalized for abdominal pain, vomiting, and diarrhea. Imaging studies showed inflammation of the intestines but no signs of bacterial infection or other causes requiring ongoing hospitalization. You improved with symptomatic treatment including bowel rest, IV hydration, anti-nausea medication , and slow re-introduction of food. Please follow up with your primary care doctor. If you experience any worsening abdominal pain, nausea/vomiting, blood in your stool or vomit, fever, chills, or any other new or concerning symptoms, please return to the Emergency Department. Disposition: HOME - Home Medications Comprehensive Discharge Medication List: Ambulatory Orders Fluticasone Propionate [Flovent Diskus] 110 mcg IH PRN 01/23/19 Levonorgestrel-Ethin Estradiol [Orsythia-28 Tablet] 1 tablet PO DAILY 01/23/19 This patient is new to me today: Yes Date on this admission: 01/23/19 Emergency Visit: Yes ED Registration Date: 01/23/19 Care time: The patient presented to the Emergency Department on the above date and was hospitalized for further evaluation of their emergent condition. Critical Care patient: No - Discharge Referral Referred to [facility] Med P.C.: No
--- NOTE | 2019-01-23 20:29 | PN ---
Teaching Attending Note Name of Resident: Mesfin Evans ATTENDING PHYSICIAN STATEMENT I saw and evaluated the patient. I reviewed the resident's note and discussed the case with the resident. I agree with the resident's findings and plan as documented. SUBJECTIVE: Feeling much improved. No further abdominal pain, vomiting, diarrhea. No hematemsis/melena/hematochezia. No fever/chills. Reports some ongoing nausea. OBJECTIVE: Afebrile, Hemodynamically Stable Last Vital Signs Temp Pulse Resp BP Pulse Ox 98.4 F 100 H 16 111/75 98 01/23/19 14:37 01/23/19 14:37 01/23/19 14:37 01/23/19 14:37 01/23/19 14:37 HEENT- Atraumatic, Normocephalic Heart - S1, S2, RRR Lungs - clear to auscultation Abdomen - Minimal tenderness on deep palpation, generalized. Soft, no guarding/ rebound. Bowel Sounds normal. Extremities - no edema. No calf tenderness Laboratory Results - last 24 hr 01/23/19 01/23/19 01/23/19 00:29 00:29 00:29 WBC 18.2 H RBC 5.01 Hgb 15.5 H Hct 45.5 H D MCV 90.7 MCH 30.9 MCHC 34.0 RDW 13.8 Plt Count 250 D MPV 9.3 Absolute Neuts (auto) 16.2 H Neutrophils % 89.3 H D Lymphocytes % 3.9 L D Monocytes % 6.6 Eosinophils % 0.1 D Basophils % 0.1 Nucleated RBC % 0 PT with INR INR PTT (Actin FS) Sodium 137 Potassium 4.1 Chloride 107 Carbon Dioxide 24 Anion Gap 7 L BUN 9 Creatinine 0.8 Creat Clearance w eGFR > 60 Random Glucose 173 H Calcium 9.8 Total Bilirubin 1.4 H Direct Bilirubin 0.3 H AST 20 ALT 18 Alkaline Phosphatase 53 Total Protein 8.3 H Albumin 4.5 Lipase 160 Serum , Qual Negative Urine Color Urine Appearance Urine pH Ur Specific [place] Urine Protein Urine Glucose (UA) Urine Ketones Urine Blood Urine Nitrite Urine Bilirubin Urine Urobilinogen Ur Leukocyte Esterase Blood Type Antibody Screen 01/23/19 01/23/19 01/23/19 02:37 02:37 05:30 WBC RBC Hgb Hct MCV MCH MCHC RDW Plt Count MPV Absolute Neuts (auto) Neutrophils % Lymphocytes % Monocytes % Eosinophils % Basophils % Nucleated RBC % PT with INR 13.90 H INR 1.18 H PTT (Actin FS) 22.0 L Sodium Potassium Chloride Carbon Dioxide Anion Gap BUN Creatinine Creat Clearance w eGFR Random Glucose Calcium Total Bilirubin Direct Bilirubin AST ALT Alkaline Phosphatase Total Protein Albumin Lipase Serum , Qual Urine Color Ltyellow Urine Appearance Clear Urine pH 6.0 Ur Specific [place] 1.010 Urine Protein Negative Urine Glucose (UA) Negative Urine Ketones 1+ H Urine Blood Negative Urine Nitrite Negative Urine Bilirubin Negative Urine Urobilinogen Negative Ur Leukocyte Esterase Negative Blood Type B NEGATIVE Antibody Screen Negative Home Medications Medication Instructions Recorded Fluticasone Propionate [Flovent 110 mcg IH PRN 01/23/19 Diskus] Levonorgestrel-Ethin Estradiol 1 tablet PO DAILY 01/23/19 [Orsythia-28 Tablet] ASSESSMENT AND PLAN: 23 year old female with no significant PMH presents with abdominal pain/nausea/ vomting/diarrhea since last night. No melena/hematochezia/hematemesis. CT A/P showed nonspecific enteritis possible sigmoid colitis and findings suggestive of R adnexal hydrosalpinx or pyosalpinx. 1. Acute Gastroenteritis, likely Viral. Afebrile although patient does have leukocytosis Hemodynamically Stable. Symptoms resolving. Continue supportive care - IV hydration Received Abx (Levaquin/Flagyl) in ED - will hold for now pending stool studies if any further diarrhea. 2. Bilateral Ovarian Cysts R adnexal mass/hydrosalpinx/pyosalpinx suggested on CT A/P but Transvaginal US shows only simple cysts on both ovaries. Asymptomatic. Patient advised to follow with her PCP and her outpatient houseperson. ADDENDUM - Patient tolerating oral intake with no further abdominal pain/nausea/ vomiting/diarrhea. She wants to be discharged. She is advised to return to ED if symptoms were to return or if she were to develop fever or bloody diarrhea. She is medically and hemodynamically stable prior to discharge.
== END 2019-01-23 17:40 | disposition home or self-care (01) ==
LOC: JER 23:45 → JERBED 01-23 04:14
PROVIDERS: ADMIT Internal Medicine
PROC: 3E03329 Introduction of Other Anti-infective into Peripheral Vein, Percutaneous Approach (ICD-10-PCS; principal; 2019-01-23)
PROC: 3E033NZ Introduction of Analgesics, Hypnotics, Sedatives into Peripheral Vein, Percutaneous Approach (ICD-10-PCS; 2019-01-23)
PROC: 3E033GC Introduction of Other Therapeutic Substance into Peripheral Vein, Percutaneous Approach (ICD-10-PCS; 2019-01-23)
DX: K52.9 Noninfective gastroenteritis and colitis, unspecified (principal); R11.2 Nausea with vomiting, unspecified; F31.9 Bipolar disorder, unspecified; J45.909 Unspecified asthma, uncomplicated; Z88.1 Allergy status to other antibiotic agents; N83.202 Unspecified ovarian cyst, left side; N83.201 Unspecified ovarian cyst, right side
CPT/HCPCS: 36415; 74177-TC; 76830-TC; 80053; 81003; 82248; 83690; 84703; 85025; 85610; 85730; 86850; 86900; 86901; 87040; 93005; 93010; 96361; 96365; 96368; 96375; 96376; 99284-25; G0378; J0131; J7030

== ENCOUNTER 2020-01-14 13:17 | Emergency (ER) | payer OTHER ==
[2020-01-14 13:37] VITALS: BMI 24.9
--- NOTE | 2020-01-14 14:24 | PDOC ---
History of Present Illness - General Chief Complaint: Pain, Acute Stated Complaint: ABD PAIN,BLEEDING, Time Seen by Provider: 01/14/20 14:19 - History of Present Illness Initial Comments: 01/14/20 14:23 CHIEF COMPLAINT: pelvic pain in HISTORY OF PRESENT ILLNESS: 24 yo F F presents to ED with left sided pelvic pain that began today. Patient uncertain of LMP but believes she did have a period in September. Patient reports the pain this morning was so intense she was unable to walk but now it feels a little better. Patient denies any vaginal bleeding, f/n/v/d or urinary symptoms. No recent travel or sick contacts. PAST MEDICAL HISTORY: Denies past medical history FAMILY HISTORY: Denies SOCIAL HISTORY: Denies tobacco, alcohol, illicit drug use. SURGICAL HISTORY: Denies ALLERGIES: No known drug allergies REVIEW OF SYSTEMS General/Constitutional: Denies fever or chills. Denies weakness, weight change. HEENT: Denies change in vision. Denies ear pain or discharge. Denies sore throat . Cardiovascular: Denies chest pain or shortness of breath. Respiratory: Denies cough, wheezing, or hemoptysis. Gastrointestinal: Denies nausea, vomiting, diarrhea or constipation. Denies rectal bleeding. Genitourinary: L pelvic pain since this morning. Denies dysuria, frequency, or change in urination. Musculoskeletal: Denies joint or muscle swelling or pain. Denies neck or back pain. Skin and breasts: Denies rash or easy bruising. Neurologic: Denies headache, vertigo, loss of consciousness, or loss of sensation. Psychiatric: Denies depression or anxiety. PHYSICAL EXAM General Appearance: Well-appearing, appropriately dressed. No apparent distress, no intoxication. HEENT: EOMI, PERRLA, normal ENT inspection, normal voice, TMs normal, pharynx normal. No conjunctival pallor. No photophobia, scleral icterus. Neck: Supple. Trachea midline. No tenderness, rigidity, carotid bruit, stridor, lymphadenopathy, or thyromegaly. Respiratory/Chest: Lungs CTAB. No shortness of breath, chest tenderness, respiratory distress, accessory muscle use. No crackles, rales, rhonchi, stridor, wheezing, dullness Cardiovascular: RRR. S1, S2. No JVD, murmur, bradycardia, tachycardia. Vascular Pulses: Dorsalis-Pedis (R): 2+, Dorsalis-Pedis (L): 2+ Gastrointestinal/Abdominal: Mild tenderness to LLQ/pelvis. Normal bowel sounds. Abdomen soft, non-distended. No tenderness or rebound tenderness. No organomegaly, pulsatile mass, guarding, hernia, hepatomegaly, splenomegaly. Lymphatic: No adenopathy, tenderness. Musculoskeletal/Extremities: Normal inspection. FROM of all extremities, normal capillary refill. Pelvis Stable. No CVA tenderness. No tenderness to extremities, pedal edema, swelling, erythema or deformity. Integumentary: Appropriate color, dry, warm. 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 Fully oriented, alert. Appropriate mood/affect. Motor strength 5/5. No appreciable EOM palsy, facial droop or sensory deficit. 01/14/20 15:46 Past History - Past Medical History Allergies/Adverse Reactions: Allergies Allergy/AdvReac Type Severity Reaction Status Date / Time cephalexin Allergy Verified 01/14/20 13:37 sulfamethoxazole Allergy Verified 01/14/20 13:37 [From Bactrim] trimethoprim [From Bactrim] Allergy Verified 01/14/20 13:37 Home Medications: Ambulatory Orders Fluticasone Propionate [Flovent Diskus] 110 mcg IH PRN 01/23/19 Levonorgestrel-Ethin Estradiol [Orsythia-28 Tablet] 1 tablet PO DAILY 01/23/19 Asthma: Yes Cancer: No Cardiac Disorders: No COPD: No Diabetes: No HTN: No Psychiatric Problems: Yes (anxiety) Seizures: No Thyroid Disease: No - Immunization History Td Vaccination: Yes TDAP Vaccination: Yes Immunization Up to Date: Yes - Psycho Social/Smoking Cessation Hx Smoking History: Never smoked Have you smoked in the past 12 months: No Number of Cigarettes Smoked Daily: 2 Information on smoking cessation initiated: No Hx Alcohol Use: No Drug/Substance Use Hx: No Substance Use Type: None Hx Substance Use Treatment: No *Physical Exam - Vital Signs Last Vital Signs Temp Pulse Resp BP Pulse Ox 97.9 F 84 17 141/76 100 01/14/20 13:33 01/14/20 13:33 01/14/20 13:33 01/14/20 13:33 01/14/20 13:33 ED Treatment Course - LABORATORY CBC & Chemistry Diagram: 01/14/20 15:20 01/14/20 15:20 - RADIOLOGY Radiology Studies Ordered: Category Date Time Status TRANSVAGINAL US PREG [US] Stat Ultrasound 01/14/20 14:21 Ordered Medical Decision Making - Medical Decision Making 01/15/20 10:14 24 yo F F presents to ED with left sided pelvic pain that began today. -labs, urine -TVUS TVUS with hypoechoic center inseparable from right ovary that may represen ectopic versus hemorrhagic corpus luteum cyst. Pending beta. Currently patient is not in any pain. Patient signed out to YOEL Carmichael at this time. Pending beta will discuss consult OB vs dispo. Discharge - Discharge Information Problems reviewed: Yes Clinical Impression/Diagnosis: , Abdominal pain Condition: Stable Disposition: HOME - Admission No - Follow up/Referral Referrals: Gregg Schultz MD [Staff Physician] - - Patient Discharge Instructions Patient Printed Discharge Instructions: DI for Ectopic , DI for Abdominal Pain -- Early Additional Instructions: You were evaluated today for your abdominal pain. It is unclear at this time if you have a cyst versus an ectopic . You were evaluated by HSPT TUTOR, Dr. Schultz Please follow-up with Dr. Nelson on Sunday as discussed. You may take Tylenol 650 mg every 6 hours as needed for pain. Return to the ER if you have worsening pain, vaginal bleeding, vomiting or if you have any changes in your symptoms. - Post Discharge Activity Work/Back to School Note: Back to Work
[2020-01-14 15:35] LABS: BASO % 0.9 % (0-2.0); EOS % 0.3 % (0-4.5); HEMATOCRIT 40.8 % (32.4-45.2); HEMOGLOBIN 13.7 GM/dL (10.7-15.3); LYMPH % 20.3 % (8-40); MCH 29.7 pg (25.7-33.7); MCHC 33.4 g/dl (32.0-36.0); MEAN CELL VOLUME 88.8 fl (80-96); MEAN PLT VOLUME 8.8 fl (7.5-11.1); MONO % 7.6 % (3.8-10.2); NEUT % 70.9 % (42.8-82.8); PLATELET COUNT 240 K/MM3 (134-434); RDW 13.2 % (11.6-15.6); WHITE BLOOD COUNT 6.5 K/mm3 (4.0-10.0)
[2020-01-14 15:36] LABS: URINE APPEARANCE CLEAR; URINE BILIRUBIN NEGATIVE (NEGATIVE); URINE COLOR YELLOW; URINE GLUCOSE (UA) NEGATIVE (NEGATIVE); URINE KETONE NEGATIVE (NEGATIVE); URINE LEUK ESTERASE NEGATIVE (NEGATIVE); URINE NITRITE NEGATIVE (NEGATIVE); URINE PROTEIN NEGATIVE (NEGATIVE); URINE UROBILINOGEN 0.2 mg/dL (0.2-1.0)
[2020-01-14 15:46] LABS: INR 1.13 (0.83-1.09); PROTHROMBIN TIME (PATIENT) 13.3 SEC (9.7-13.0)
[2020-01-14 16:28] LABS: ALBUMIN 4.2 g/dl (3.4-5.0); BILIRUBIN,TOTAL 0.9 mg/dL (0.2-1); BLOOD UREA NITROGEN 4.7 mg/dL (7-18); CALCIUM 9.5 mg/dL (8.5-10.1); CREATININE 0.7 mg/dL (0.55-1.3); POTASSIUM 4.1 mmol/L (3.5-5.1); TOT PROT 7.6 g/dl (6.4-8.2)
--- NOTE | 2020-01-14 16:28 | PDOC ---
*Physical Exam - Vital Signs Last Vital Signs Temp Pulse Resp BP Pulse Ox 97.9 F 84 17 141/76 100 01/14/20 13:33 01/14/20 13:33 01/14/20 13:33 01/14/20 13:33 01/14/20 13:33 - Physical Exam General Appearance: Yes: Nourished, Appropriately Dressed. No: Apparent Distress Gastrointestinal/Abdominal: positive: Normal Bowel Sounds, Flat, Soft. negative : Tender Neurologic: positive: Fully Oriented, Alert, Normal Mood/Affect, Normal Response ED Treatment Course - LABORATORY CBC & Chemistry Diagram: 01/14/20 15:20 01/14/20 15:20 - ADDITIONAL ORDERS Additional order review: Laboratory Results 01/14/20 01/14/20 01/14/20 15:20 15:20 15:20 PT with INR 13.30 H INR 1.13 H Beta HCG, Quant Urine Color Yellow Urine Appearance Clear Urine pH 8.0 D Ur Specific [place] 1.004 L Urine Protein Negative Urine Glucose (UA) Negative Urine Ketones Negative Urine Blood Negative Urine Nitrite Negative Urine Bilirubin Negative Urine Urobilinogen 0.2 Ur Leukocyte Esterase Negative Blood Type B NEGATIVE Antibody Screen Negative 01/14/20 15:20 PT with INR INR Beta HCG, Quant 429.6 Urine Color Urine Appearance Urine pH Ur Specific [place] Urine Protein Urine Glucose (UA) Urine Ketones Urine Blood Urine Nitrite Urine Bilirubin Urine Urobilinogen Ur Leukocyte Esterase Blood Type Antibody Screen 01/14/20 15:20 RBC 4.60 MCV 88.8 MCHC 33.4 RDW 13.2 MPV 8.8 Neutrophils % 70.9 D Lymphocytes % 20.3 D Monocytes % 7.6 Eosinophils % 0.3 D Basophils % 0.9 D Medical Decision Making - Medical Decision Making 01/14/20 16:39 Signout received from TAMIA Fagan. Briefly, the patient is a 24-year-old female G3 , who presents to the ER today for left-sided pelvic pain which started this morning and caused her inability to walk due to the pain. She states that since arriving, her pain has resolved. She states her last menstrual cycle may have been in September however she is unsure as she does not usually get a period when she takes her control pills. She is unsure as to which control pill she takes. She denies urinary symptoms, vaginal bleeding nausea and vomiting. 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 Patient was pending ultrasound results as well as beta-hCG. Beta hCG shows a level at 426. This correlates with a 1 to 2-week potentially. Ultrasound as read by radiology shows a round echogenic density with a hypoechoic center inseparable from the right ovary measuring a 2 x 1.9 cm with peripheral color Doppler flow which may represent an ectopic versus a hemorrhagic corpus luteum cyst. Consult placed to Dr. Schultz for OB. Case was discussed. 01/14/20 17:37 Dr. Longo was at bedside and evaluated the patient. Likely a corpus luteum cyst rather than an ectopic. Recommends discharge and to have the patient follow-up with him in 2 days for reevaluation in his office. He gave the patient his card. Return precautions given, including worsening abdominal pain, vaginal bleeding. Patient understands return precautions I discussed the physical exam findings, ancillary test results and final diagnoses with the patient. I answered all of the patient's questions. The patient was satisfied with the care received and felt comfortable with the discharge plan and treatment plan. The Patient agrees to follow up with the primary care physician/specialist within 24-72 hours. Return precautions were given. Discharge - Discharge Information Problems reviewed: Yes Clinical Impression/Diagnosis: Qualifiers: Weeks of gestation: less than 8 weeks Qualified Code(s): Z3A.01 - Less than 8 weeks gestation of Abdominal pain Qualifiers: Abdominal location: left lower quadrant Qualified Code(s): R10.32 - Left lower quadrant pain Condition: Stable Disposition: HOME - Admission No - Follow up/Referral Referrals: Gregg Schultz MD [Staff Physician] - - Patient Discharge Instructions Patient Printed Discharge Instructions: DI for Abdominal Pain -- Early , DI for Ectopic Additional Instructions: You were evaluated today for your abdominal pain. It is unclear at this time if you have a cyst versus an ectopic . You were evaluated by BLACKJACK SUPERVISOR, Dr. Schultz Please follow-up with Dr. Nelson on Sunday as discussed. You may take Tylenol 650 mg every 6 hours as needed for pain. Return to the ER if you have worsening pain, vaginal bleeding, vomiting or if you have any changes in your symptoms. - Post Discharge Activity Work/Back to School Note: Back to Work
--- NOTE | 2020-01-14 17:45 | CONSULT ---
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 She denies any pain at this time. - History Source History Provided By: Patient Limitations to Obtaining History: No Limitations - Past Medical History DOORMAKER: No: Alzheimer's, CVA, Dementia, Migraine, Multiple Sclerosis, Peripheral Neuropathy, Parkinson's, Seizure, Syncope, TIA, Vertigo, Other Cardio/Vascular: No: AFIB, Aneurysm, Aortic Insufficiency, Aortic Stenosis, CAD , CHF, Deep Vein Thrombosis, HTN, Hyperlipdemia, NV, Mitral Insufficiency, Mitral Stenosis, Murmur, Pulmonary Hypertension, Other Pulmonary: No: Asthma, Bronchitis, Cancer, COPD, O2 Dependent, Pneumonia, Previously Intubated, Pulmonary Embolus, Pulmonary Fibrosis, Sleep Apnea, Other Gastrointestinal: No: Ascites, Cancer, Constipation, Crohn's Disease, Diverticulitis, Diverticulosis, Esophageal Varices, Gastritis, GERD, GI Bleed, Hemorrhoids, Hiatal Hernia, Inflamatory Bowel Disease, Irritable Bowel Disease, Pancreatitis, Peptic Ulcer Disease, Ulcerative Colitis, Other Hepatobiliary: No: Cirrhosis, Cholelithiasis, Cholecystitis, Choledocholithiasis , Hepatitis A, Hepatitis B, Hepatitis C, Other Renal/: No: Renal Failure, Renal Inusuff, BPH, Cancer, Hematuria, Hemodialysis , Neurogenic Bladder, Renal Calculi, UTI, Other ...: Yes ...: 3 ...Para: 1 (1011) Heme/Onc: No: Anemia, B12 Deficiency, Bleeding Disorder, Cancer, Current Chemotherapy, Current Radiation Therapy, Hemochromatosis, Hypercoaguable State, Myeloproliferative Synd, Sickle Cell Disease, Sickle Cell Trait, Thrombocytopenia, Other Infectious Disease: Yes: Other (H/o chlamydia infection) Psych: No: Addictions, Anxiety, Bipolar, Depression, Panic, Psychosis, Schizophrenia, Other Musculoskeletal: No: Bursitis, Chronic low back pain, Hemiparesis, Hemiplegia, Osteoarthritis, Paraplegia, Other Rheumatology: No: Fibromyalgia, Gout, Lupus, Rheumatoid Arthritis, Sarcoidosis, Vasculitis, Other ENT: No: Allergic Rhinitis, Sinusitis, Other Endocrine: No: Def[place]'s Disease, Radha's Disease, Diabetes Insipidus, Diabetes Mellitus, Hyperparathyroidism, Hyperthyroidism, Hypothyroidism, Osteopenia, SIADH, Other Dermatology: No: Basal Cell, Cellulitis, Eczema, Melanoma, Psoriasis, Squamous Cell, Other - Past Surgical History Past Surgical History: Yes: None Additional Surgical History: She reports H/O medical - Alcohol/Substance Use Hx Alcohol Use: No History of Substance Use: reports: None - Smoking History Smoking history: Never smoked Have you smoked in the past 12 months: No Aproximately how many cigarettes per day: 2 - Social History History of Recent Travel: No Home Medications - Allergies Allergies/Adverse Reactions: Allergies Allergy/AdvReac Type Severity Reaction Status Date / Time cephalexin Allergy Verified 01/14/20 13:37 sulfamethoxazole Allergy Verified 01/14/20 13:37 [From Bactrim] trimethoprim [From Bactrim] Allergy Verified 01/14/20 13:37 - Home Medications Home Medications: Ambulatory Orders Fluticasone Propionate [Flovent Diskus] 110 mcg IH PRN 01/23/19 Levonorgestrel-Ethin Estradiol [Orsythia-28 Tablet] 1 tablet PO DAILY 01/23/19 Family Medical History Family History: Unable to Obtain Review of Systems Findings/Remarks: Patient reports feeling well know following a self-limited episode of pronounced LLQ abdominal pain - Review of Systems Constitutional: reports: No Symptoms Eyes: reports: No Symptoms HENT: reports: No Symptoms Neck: reports: No Symptoms Cardiovascular: reports: No Symptoms Respiratory: reports: No Symptoms Gastrointestinal: reports: No Symptoms Genitourinary: reports: No Symptoms Breasts: reports: No Symptoms Reported Musculoskeletal: reports: No Symptoms Integumentary: reports: No Symptoms Neurological: reports: No Symptoms Endocrine: reports: No Symptoms Hematology/Lymphatic: reports: No Symptoms Psychiatric: reports: No Symptoms Physical Exam Vital Signs: Vital Signs Temperature 97.9 F 01/14/20 13:33 Pulse Rate 84 01/14/20 13:33 Respiratory Rate 17 01/14/20 13:33 Blood Pressure 141/76 01/14/20 13:33 O2 Sat by Pulse Oximetry (%) 100 01/14/20 13:33 Constitutional: Yes: Well Nourished, No Distress HENT: Yes: Atraumatic Neck: Yes: Supple Cardiovascular: Yes: Regular Rate and Rhythm Respiratory: Yes: Regular Gastrointestinal: Yes: Soft (n/d, n/t, no rebound, no guarding, no palpable masses) ...Rectal Exam: Yes: Deferred Renal/: Yes: Other (deferred) Breast(s): Yes: Other (deferred) Musculoskeletal: Yes: WNL Extremities: Yes: WNL Edema: Yes Edema: LLE: Trace, RLE: Trace Integumentary: Yes: WNL Neurological: Yes: Alert, Oriented, Weakness Psychiatric: Yes: Alert, Oriented Labs: CBC, BMP 01/14/20 15:20 01/14/20 15:20 Imaging - Results Ultrasound: Report Reviewed (Echogenic lesion on right ovary reviewed.), Image Reviewed Problem List - Problems (1) at early stage Code(s): Z34.90 - ENCNTR FOR SUPRVSN OF NORMAL , UNSP, UNSP TRIMESTER Assessment/Plan 24 y/o presenting for severe abdominal LLQ pain that has resolved. Patient is in stable condition and no acute abdomen on examination. Patient was counseled regarding possible diagnoses of early normal vs ectopic discussed. All questions answered. Clinical presentation and available information is consistent with likely early and ruptured corpus Luteum. Importance of close follow up for diagnosis confirmation explained to patient. Warning signs and precautions reviewed. Patient expressed understanding and agreement with management plan. -D/C home -F/U in 2 days at health center (MD card provided) - Return to ER as required - Patient discussed with ER provider.
[2020-01-14 18:08] VITALS: BP 118/70; PULSE 75; TEMP 98.1
== END 2020-01-14 18:00 | disposition home or self-care (01) ==
LOC: JER 13:17
DX: O26.899 Other specified pregnancy related conditions, unspecified trimester (principal); R10.32 Left lower quadrant pain; R10.9 Unspecified abdominal pain; Z88.8 Allergy status to other drugs, medicaments and biological substances; F41.9 Anxiety disorder, unspecified
CPT/HCPCS: 36415; 76817-TC; 80053; 81003; 84702; 85025; 85610; 86850; 86900; 86901; 99284-25

== ENCOUNTER 2020-01-25 14:05 | Emergency (ER) | payer OTHER ==
[2020-01-25 14:35] VITALS: TEMP 98; BMI 24.9
--- NOTE | 2020-01-25 15:01 | PDOC ---
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 Patient reports positive test on 01/11/20, seen here 01/14/20 with lower abdominal pain and diagnosed with a an ovarian cyst and told "too early to determine if ectopic." Now complaining of 4 episodes of daily vomiting, feels nausea to the scent of certain foods. Non-bloody, non-bilious emesis with associated epigastric pain that resolved after pepcid at noon today. Also endorses a lower abdominal tense / full sensation. Denies any vaginal bleeding, discharge, current lower abdominal pain. Denies fevers, chest pain, shortness of breath, recent illness. All: As above Meds: Albuterol, Flovent PMH: Asthma PSH: Denies SHx: Denies toxic habits Past History - Travel Traveled outside of the country in the last 30 days: No Close contact w/someone who was outside of country & ill: No - Past Medical History Allergies/Adverse Reactions: Allergies Allergy/AdvReac Type Severity Reaction Status Date / Time cephalexin Allergy Verified 01/25/20 14:27 sulfamethoxazole Allergy Verified 01/25/20 14:27 [From Bactrim] trimethoprim [From Bactrim] Allergy Verified 01/25/20 14:27 Home Medications: Ambulatory Orders Fluticasone Propionate [Flovent Diskus] 110 mcg IH PRN 01/23/19 Levonorgestrel-Ethin Estradiol [Orsythia-28 Tablet] 1 tablet PO DAILY 01/23/19 Metoclopramide HCl [Reglan] 10 mg PO TID PRN #9 tablet 01/25/20 Asthma: Yes Cancer: No Cardiac Disorders: No COPD: No Diabetes: No HTN: No Psychiatric Problems: Yes (anxiety) Seizures: No Thyroid Disease: No - Immunization History Td Vaccination: Yes TDAP Vaccination: Yes Immunization Up to Date: Yes - Psycho Social/Smoking Cessation Hx Smoking History: Never smoked Have you smoked in the past 12 months: No Number of Cigarettes Smoked Daily: 2 Hx Alcohol Use: No Drug/Substance Use Hx: No Substance Use Type: None Hx Substance Use Treatment: No Review of Systems - Review of Systems Able to Perform ROS?: Yes Is the patient limited Telugu proficient: Yes Constitutional: Yes: Chills. No: Diaphoresis, Fever, Night Sweats, Weakness HEENTM: No: Nose Congestion, Throat Pain Respiratory: No: Cough, Shortness of Breath Cardiac (ROS): No: Chest Pain, Irregular Heart Rate, Lightheadedness, Palpitations, Syncope, Chest Tightness ABD/GI: Yes: Nausea, Indigestion. No: Abdominal Distended, Constipated, Diarrhea, Vomiting : No: Burning, Dysuria, Frequency Musculoskeletal: No: Muscle Pain, Muscle Weakness, Neck Pain Integumentary: No: Bruising, Pruritus, Rash Neurological: No: Headache, Numbness, Tingling, Weakness Psychiatric: No: Stressors, Change in Appetite Endocrine: No: Increased Thirst, Increased Urine Hematologic/Lymphatic: No: Anemia, Blood Clots, Easy Bleeding All Other Systems: Reviewed and Negative *Physical Exam - Vital Signs Last Vital Signs Temp Pulse Resp BP Pulse Ox 98 F 89 18 128/66 99 01/25/20 14:23 01/25/20 14:23 01/25/20 14:23 01/25/20 14:23 01/25/20 14:23 - Physical Exam 01/25/20 16:15 Vitals reviewed, AFVSS GEN: Well appearing, appears stated age, NAD, comfortable. AAOx3. HEENT: NCAT, EOMI, PERRL. Sclera anicteric, non-injected. No facial asymmetry. Moist mucous membranes. Normal voice. Trachea midline. CV: RRR, S1/S2, no murmurs / rubs / gallops appreciated. LUNG: CTABL, normal work of breathing. No wheezes, rales, rhonchi. No cough. Speaking full sentences. GI: Soft, non-distended, tender in epigastrium with deep palpation, +BS, no guarding, no rebound. No masses. Neg CVAT b/l. EXTREMITIES: 2+ distal pulses. No LE edema. No obvious deformities of all extremities. SKIN: Warm, dry, no rashes appreciated, non-jaundiced. PSYCH: Normal mood and affect. Cooperative and appropriate. NEURO: CN grossly intact. Moving all extremities well. Normal strength and sensation grossly. ED Treatment Course - LABORATORY CBC & Chemistry Diagram: 01/25/20 16:02 01/25/20 16:02 Medical Decision Making - Medical Decision Making 01/25/20 16:09 24yo F PMH asthma presenting with 4 days of nausea / vomiting and epi gastric pain. History notable for absence of constitutional symptoms, relief of pain with Pepcid earlier today. Exam notable for stable vitals, epigastric tenderness with deep palpation, otherwise unremarkable exam. DDX: Morning sickness, gastritis, UTI / Pyelo, GERD vs PUD, early ectopic. - CBC, CMP, Beta Quant - UA, UCx - TVUS <14wks - Reglan - Maalox - 1L IVF 01/25/20 17:51 - Labs unremarkable, beta-quant 18K - US read pending Discharge - Discharge Information Problems reviewed: Yes Clinical Impression/Diagnosis: Nausea & vomiting Qualifiers: Vomiting type: unspecified Vomiting Intractability: non-intractable Qualified Code(s): R11.2 - Nausea with vomiting, unspecified Condition: Improved Disposition: HOME - Admission No - Additional Discharge Information Prescriptions: Metoclopramide HCl [Reglan] 10 mg PO TID PRN #9 tablet PRN Reason: Nausea And/Or Vomiting - Follow up/Referral Referrals: Kulwinder Phillips MD [Primary Care Provider] - - Patient Discharge Instructions Additional Instructions: You were seen at [facility] for nausea and vomiting with abdominal pain. A prescription nausea medication has been sent to your pharmacy. Use this as needed up to 3 times per day. Follow up with your OBGYN in the next 1-3 days if symptoms persist. Return to the ED for any new or concerning symptoms. - Post Discharge Activity
[2020-01-25] MEDS ORDERED: ONDANSETRON *ODT* 4 MG TABLET SL ONE (15:21)
[2020-01-25] MEDS ORDERED: MAG HYDROX/AL HYDROX/SIMETH 30 ML UNIT-DOSE CUP PO ONE (15:21)
[2020-01-25] MEDS ORDERED: METOCLOPRAMIDE HCL INJECTION 10 MG/2 ML VIAL IVPB ONE (15:31)
[2020-01-25] MEDS ORDERED: SODIUM CHLORIDE 0.9% 500 ML INFUS.BAG IV ONE (15:52)
--- NOTE | 2020-01-25 16:17 | PDOC ---
Attending Attestation - Resident Resident Name: BobOwen - ED Attending Attestation I have performed the following: I have examined & evaluated the patient, The case was reviewed & discussed with the resident, I agree w/resident's findings & plan - HPI HPI: 01/25/20 16:13 24yo F PMH asthma presenting with 4 days of nausea / vomiting and epigastric pain. Patient reports positive test on 01/11/20, seen here 01/14/20 with lower abdominal pain and had ultrasound from at that time on 01/14/2020 -there is a round slightly echogenic density with hypoechoic center inseparable from the right ovary measuring 2 x 2 cm with flow, at that time it was ectopic versus hemorrhagic corpus luteal cyst. Small amount of free fluid in the cul-de-sac and trace free fluid in the adnexa. Patient was told to follow-up on her hCG and establish [employer] care and serial pelvic ultrasounds which she has not done yet. At that time her beta-hCG was 430. Now complaining of 4 episodes of daily vomiting, feels nausea to the scent of certain foods, diarrhea x 1 week. Non-bloody, non-bilious emesis with associated epigastric pain that resolved after pepcid. Also endorses a lower abdominal tense / full sensation. Denies any vaginal bleeding, discharge, current lower abdominal pain. Denies fevers, chest pain, shortness of breath, recent illness. no urinary sx. 01/25/20 16:21 - Physicial Exam PE: 01/25/20 16:13 Agree with the resident's HPI and PE as documented in the electronic medical record. NAD, well appearing, EOMI, PERRL, nl conjunctiva, anicteric; neck supple. lungs clear, RRR, abdomen soft +epigastric TTP, no rayo;s and no mcburney's point tenderness. no rebound, guarding. Back nontender. no cvat. GONZALEZ x4, no focal neuro deficits. No peripheral edema. normal color for ethnicity, WWP. - Medical Decision Making 01/25/20 16:13 Vital Signs Temp Pulse Resp BP Pulse Ox 98 F 89 18 128/66 99 01/25/20 14:23 01/25/20 14:23 01/25/20 14:23 01/25/20 14:23 01/25/20 14:23 VS reviewed, wnl. reassuring DDx abdominal pain: Renal colic, biliary colic, metabolic/electrolyte derangements. GERD, PUD, esophageal spasm, pancreatitis, hepatitis, constipation, colitis, gastroenteritis, cholecystitis, UTI, pyelonephritis, medication side effect, hernia, msk strain, mesenteric adenitis, psoas abscess. ectopic , miscarriage, demise, subchorionic hematoma, retained POC, normal first trimester bleeding, UTI in in . Fibroid uterus, vaginitis, infection, electrolyte/metabolic derangements, anemia. ovarian cyst. hyperemesis gravidarum, n/v of no lower quad tenderness to suggest pelvic pathology or appy. no bleeding, no txs indicated to check rh status pt does not know her true LMP, as her periods are irregular, has yet to see her estimator jewelry to establish care, later this week. She had ultrasound from 01/14/2020 -there is a round slightly echogenic density with hypoechoic center inseparable from the right ovary measuring 2 x 2 cm with flow, at that time it was ectopic versus hemorrhagic corpus luteal cyst. Small amount of free fluid in the cul-de-sac and trace free fluid in the adnexa. Patient was told to follow-up on her hCG and establish [employer] care and serial pelvic ultrasounds which she has not done yet. At that time her beta-hCG was 430. VS wnl, normotensive, no tachy or hypoxia/respiratory distress. abdomen benign on reeval and no peritoneal findings, no VB here, controlled basic labs/lytes, lipase, LFTs, UA, beta hcg pelvic sono to check for IUP (given equivocal pelvic sono results from 1.5 wks ago. given GI cocktail, analgesia, IVF, reassess took pepcid at noon already reglan for nausea. 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 01/25/20 16:18 01/25/20 16:20 Discharge - Discharge Information Problems reviewed: Yes Clinical Impression/Diagnosis: Nausea & vomiting Qualifiers: Vomiting type: unspecified Vomiting Intractability: non-intractable Qualified Code(s): R11.2 - Nausea with vomiting, unspecified Condition: Improved Disposition: HOME - Additional Discharge Information Prescriptions: Metoclopramide HCl [Reglan] 10 mg PO TID PRN #9 tablet PRN Reason: Nausea And/Or Vomiting - Follow up/Referral Referrals: Kulwinder Phillips MD [Primary Care Provider] - - Patient Discharge Instructions Additional Instructions: You were seen at [place] for nausea and vomiting with abdominal pain. A prescription nausea medication has been sent to your pharmacy. Use this as needed up to 3 times per day. Follow up with your OBGYN in the next 1-3 days if symptoms persist. Return to the ED for any new or concerning symptoms. - Post Discharge Activity
[2020-01-25] MEDS ORDERED: METOCLOPRAMIDE HCL INJECTION 10 MG/2 ML VIAL ONE (16:20)
[2020-01-25] MEDS ORDERED: MAG HYDROX/AL HYDROX/SIMETH 30 ML UNIT-DOSE CUP ONE (16:20)
[2020-01-25] MEDS ORDERED: ONDANSETRON 4 MG/2 ML VIAL ONE (16:20)
[2020-01-25 16:36] LABS: BASO % 0.8 % (0-2.0); EOS % 0.1 % (0-4.5); HEMATOCRIT 41.5 % (32.4-45.2); LYMPH % 17.4 % (8-40); MCH 29.9 pg (25.7-33.7); MCHC 33.6 g/dl (32.0-36.0); MEAN PLT VOLUME 9.2 fl (7.5-11.1); MONO % 7.1 % (3.8-10.2); NEUT % 74.6 % (42.8-82.8); PLATELET COUNT 268 K/MM3 (134-434); RBC 4.66 M/mm3 (3.60-5.2); RDW 13.2 % (11.6-15.6); WHITE BLOOD COUNT 7.5 K/mm3 (4.0-10.0)
[2020-01-25 17:13] LABS: ALBUMIN 4.1 g/dl (3.4-5.0); BILIRUBIN,TOTAL 0.7 mg/dL (0.2-1); BLOOD UREA NITROGEN 4.6 mg/dL (7-18); CALCIUM 8.6 mg/dL (8.5-10.1); CREATININE 0.6 mg/dL (0.55-1.3); TOT PROT 7.5 g/dl (6.4-8.2)
[2020-01-25 17:14] LABS: POTASSIUM 4.2 mmol/L (3.5-5.1)
[2020-01-25 19:54] VITALS: BP 124/73; PULSE 86
== END 2020-01-25 19:51 | disposition home or self-care (01) ==
LOC: JER 14:05
PROC: 3E033GC Introduction of Other Therapeutic Substance into Peripheral Vein, Percutaneous Approach (ICD-10-PCS; principal; 2020-01-25)
DX: O26.891 Other specified pregnancy related conditions, first trimester (principal); O21.9 Vomiting of pregnancy, unspecified; Z3A.01 Less than 8 weeks gestation of pregnancy; Z88.1 Allergy status to other antibiotic agents; Z88.8 Allergy status to other drugs, medicaments and biological substances
CPT/HCPCS: 36415; 76817-TC; 80053; 83690; 84702; 85025; 96374; 99284-25

== ENCOUNTER 2022-07-28 23:51 | Emergency (ER) | payer OTHER ==
[2022-07-29] VITALS: BP 109/77; PULSE 84; RESP 18; TEMP 97.7; BMI 22.6
[2022-07-29] MEDS ORDERED: METOCLOPRAMIDE HCL INJECTION 10 MG/2 ML VIAL IVPB ONE (00:23)
[2022-07-29] MEDS ORDERED: ACETAMINOPHEN 1000 MG/100 ML BAG IVPB ONE (00:23)
[2022-07-29] MEDS ORDERED: LACTATED RINGERS SOLUTION 1000 ML INFUS.BAG IV ONE (00:25)
[2022-07-29] MEDS ORDERED: ACETAMINOPHEN INJECTION 100 ML IVPB ONE (00:53)
[2022-07-29] MEDS ORDERED: METOCLOPRAMIDE HCL INJECTION 10 MG/2 ML VIAL ONE (00:54)
[2022-07-29 01:07] LABS: BASO % 0.5 % (0-2.0); EOS % 0.4 % (0-4.5); EPI CELLS >36 /uL (0-25.1); HEMATOCRIT 42.9 % (32.4-45.2); HEMOGLOBIN 14.7 GM/dL (10.7-15.3); HYALINE CASTS 6 /uL (0-3.1); LYMPH % 20.4 % (8-40); MCH 30.2 pg (25.7-33.7); MCHC 34.3 g/dl (32.0-36.0); MEAN PLT VOLUME 8.9 fl (7.5-11.1); MONO % 10.5 % (3.8-10.2); NEUT % 68.2 % (42.8-82.8); PLATELET COUNT 280 10^3/uL (134-434); RBC 4.87 M/mm3 (3.60-5.2); RDW 13.1 % (11.6-15.6); URINE APPEARANCE CLEAR; URINE BACTERIA 874 /uL (0-1359); URINE BILIRUBIN 1+ (NEGATIVE); URINE COLOR DK YELLOW; URINE GLUCOSE (UA) NEGATIVE (NEGATIVE); URINE KETONE 4+ (NEGATIVE); URINE LEUK ESTERASE TRACE (NEGATIVE); URINE NITRITE NEGATIVE (NEGATIVE); URINE PROTEIN 1+ (NEGATIVE); URINE RBC 22 /uL (0-23.9); URINE WBC 79 /uL (0-25.8); WHITE BLOOD COUNT 8.1 K/mm3 (4.0-10.0)
[2022-07-29 01:25] LABS: ALBUMIN 4.4 g/dl (3.4-5.0); CALCIUM 9.6 mg/dL (8.5-10.1)
[2022-07-29 01:28] LABS: CREATININE 0.7 mg/dL (0.55-1.3)
[2022-07-29 01:30] LABS: BILIRUBIN,TOTAL 1.5 mg/dL (0.2-1); TOT PROT 7.8 g/dl (6.4-8.2)
[2022-07-29] MEDS ORDERED: LACTATED RINGERS SOLUTION 1,000 ML IV STA (01:31)
[2022-07-29] MEDS ORDERED: ONDANSETRON 4 MG/2 ML VIAL IVPUSH ONE (02:02)
[2022-07-29] MEDS ORDERED: ONDANSETRON 4 MG/2 ML VIAL ONE (02:11)
== END 2022-07-29 03:34 | disposition home or self-care (01) ==
LOC: JER 23:51
PROC: 3E0333Z Introduction of Anti-inflammatory into Peripheral Vein, Percutaneous Approach (ICD-10-PCS; principal; 2022-07-28)
PROC: 3E033GC Introduction of Other Therapeutic Substance into Peripheral Vein, Percutaneous Approach (ICD-10-PCS; 2022-07-28)
PROC: 3E033GC Introduction of Other Therapeutic Substance into Peripheral Vein, Percutaneous Approach (ICD-10-PCS; 2022-07-28)
DX: R11.2 Nausea with vomiting, unspecified (principal)
CPT/HCPCS: 36415; 76801-TC; 80053; 81003; 83690; 84702; 85025; 87086; 99284-25

== ENCOUNTER 2023-03-20 06:00 | Inpatient (IN) | payer BC, OTHER ==
[2023-03-20] MEDS ORDERED: DEXTROSE 5%-LACTATED RINGERS 1,000 ML IV SCH (06:30)
[2023-03-20 07:10] VITALS: BMI 33.2
[2023-03-20 07:28] LABS: BASO % 0.3 % (0-2.0); EOS % 1.6 % (0-4.5); HEMATOCRIT 33.7 % (32.4-45.2); HEMOGLOBIN 11.6 GM/dL (10.7-15.3); LYMPH % 17.1 % (8-40); MCH 28.8 pg (25.7-33.7); MCHC 34.5 g/dl (32.0-36.0); MEAN CELL VOLUME 83.6 fl (80-96); MEAN PLT VOLUME 10.2 fl (7.5-11.1); MONO % 9.9 % (3.8-10.2); NEUT % 71.1 % (42.8-82.8); PLATELET COUNT 182 10^3/uL (134-434); RBC 4.04 M/mm3 (3.60-5.2); RDW 14.4 % (11.6-15.6); WHITE BLOOD COUNT 8.6 K/mm3 (4.0-10.0)
[2023-03-20 07:33] LABS: INR 0.99 (0.83-1.09); PROTHROMBIN TIME (PATIENT) 11.5 SEC (9.7-13.0)
[2023-03-20 07:35] LABS: ACTIVATED PTT 25.6 SECONDS (25.2-36.5)
[2023-03-20 07:49] LABS: POTASSIUM 3.6 mmol/L (3.5-5.1)
[2023-03-20 07:51] LABS: BLOOD UREA NITROGEN 4.9 mg/dL (7-18); CALCIUM 8.3 mg/dL (8.5-10.1)
[2023-03-20 07:52] LABS: ALBUMIN 2.6 g/dl (3.4-5.0)
[2023-03-20 07:55] LABS: CREATININE 0.6 mg/dL (0.55-1.3)
[2023-03-20 07:56] LABS: BILIRUBIN,TOTAL 0.5 mg/dL (0.2-1)
[2023-03-20] MEDS: ELECTROLYTE-148 SOLN 1,000 ML IV SCH (08:15)
[2023-03-20] MEDS: VANCOMYCIN/WATER 1500 MG/300 ML PREMIXED BAG (RESTRICTED TO ID ONLY) IVPB SCH ×2 (08:25→15:35)
[2023-03-20 09:00] LABS: URINE BARBITURATES NEGATIVE (NEGATIVE)
[2023-03-20 09:01] LABS: COCAINE, UR NEGATIVE (NEGATIVE); METHADONE, UR NEGATIVE (NEGATIVE); OPIATES, URI NEGATIVE (NEGATIVE); PHENCYCLIDINE,URINE NEGATIVE (NEGATIVE); URINE AMPHETAMINES NEGATIVE (NEGATIVE); URINE BENZODIAZEPINES NEGATIVE (NEGATIVE)
[2023-03-20 09:32] LABS: EPI CELLS 34 /uL (0-25.1); HYALINE CASTS 0 /uL (0-3.1); PH,URINE 6.5 (5.0-8.0); URINE APPEARANCE CLEAR; URINE BACTERIA 44 /uL (0-1359); URINE BILIRUBIN NEGATIVE (NEGATIVE); URINE COLOR YELLOW; URINE GLUCOSE (UA) NEGATIVE (NEGATIVE); URINE KETONE NEGATIVE (NEGATIVE); URINE LEUK ESTERASE TRACE (NEGATIVE); URINE NITRITE NEGATIVE (NEGATIVE); URINE PROTEIN NEGATIVE (NEGATIVE); URINE RBC 213 /uL (0-23.9); URINE UROBILINOGEN 0.2 mg/dL (0.2-1.0); URINE WBC 26 /uL (0-25.8)
[2023-03-20] MEDS ORDERED: PROMETHAZINE HCL 25 MG/1 ML VIAL IVPB ONE (09:32)
[2023-03-20] MEDS ORDERED: BUTORPHANOL TARTRATE 1 MG/ML VIAL IVPUSH PRN (09:32)
[2023-03-20] MEDS ORDERED: OXYTOCIN 30 UNITS in 0.9% NS 30 UNIT/500 ML INFUS.BAG IVPB ONE (09:51)
[2023-03-20] MEDS: OXYTOCIN 30 UNITS in 0.9% NS 30 UNIT/500 ML INFUS.BAG IVPB SCH (10:00)
[2023-03-20 10:17] LABS: HEPATITIS B SURFACE AG MATERN NON-REACTIVE (NONREACTIVE)
[2023-03-20 10:18] LABS: SYPHILIS W/ RPR CONF NON-REACTIVE (NONREACTIVE)
[2023-03-20] MEDS ORDERED: PROMETHAZINE HCL 25 MG/1 ML VIAL ONE (10:42)
[2023-03-20] MEDS ORDERED: BUTORPHANOL TARTRATE 2 MG/ML VIAL ONE (10:42)
[2023-03-20 10:46] LABS: HIV INTERPRETATION NEGATIVE (NEGATIVE)
[2023-03-20 11:57] VITALS: RESP 18
[2023-03-20] MEDS ORDERED: OXYTOCIN 20 UNITS in 0.9% NS 20 UNIT/1,000 ML INFUS.BAG IV ONE (12:17)
[2023-03-20] MEDS ORDERED: BENZOCAINE 28 GM HEMORRHOIDAL OINTMENT TP PRN (13:09)
[2023-03-20] MEDS ORDERED: WITCH HAZEL 50% (TUCKS) 40 PAD/JAR PAD TP PRN (13:09)
[2023-03-20] MEDS ORDERED: BISACODYL 10 MG SUPP.RECT RC PRN (13:09)
[2023-03-20] MEDS ORDERED: METHYLERGONOVINE MALEATE 0.2 MG/1 ML AMP IM PRN (13:09)
[2023-03-20] MEDS ORDERED: ACETAMINOPHEN 325 MG TABLET (FP) PO PRN (13:09)
[2023-03-20] MEDS ORDERED: oxyCODONE HCL 5 MG TABLET PO PRN (13:09)
[2023-03-20] MEDS ORDERED: BENZOCAINE 20% 57 GM BOTTLE TP PRN (13:09)
[2023-03-20] MEDS ORDERED: OXYTOCIN 20 UNITS in 0.9% NS 20 UNIT/1,000 ML INFUS.BAG IV SCH (13:15)
[2023-03-20 13:45] LABS: CORD BASE EXCESS -2.9 mmol/L (0-2); CORD HCO3 22.3 mmHg (20-29); CORD PCO2 40.4 mmHg (30-78); CORD pH 7.359 (7.14-7.44)
[2023-03-20 14:00] LABS: POC NITRAZINE POS
[2023-03-20] MEDS: IBUPROFEN 600 MG TABLET (FP) PO PRN (14:20)
[2023-03-20] MEDS ORDERED: IBUPROFEN 600 MG TABLET (FP) PO ONE (14:26)
[2023-03-21 08:28] LABS: BASO % 0.3 % (0-2.0); EOS % 1.1 % (0-4.5); HEMATOCRIT 31.6 % (32.4-45.2); HEMOGLOBIN 10.9 GM/dL (10.7-15.3); LYMPH % 13.3 % (8-40); MCH 28.8 pg (25.7-33.7); MCHC 34.3 g/dl (32.0-36.0); MEAN CELL VOLUME 83.9 fl (80-96); MEAN PLT VOLUME 9.4 fl (7.5-11.1); MONO % 8.6 % (3.8-10.2); NEUT % 76.7 % (42.8-82.8); PLATELET COUNT 183 10^3/uL (134-434); RBC 3.77 M/mm3 (3.60-5.2); RDW 14.1 % (11.6-15.6); WHITE BLOOD COUNT 11.3 K/mm3 (4.0-10.0)
[2023-03-21] MEDS: IBUPROFEN 600 MG TABLET (FP) PO PRN (09:09)
[2023-03-21 09:23] VITALS: BP 110/71; PULSE 90; TEMP 97.8
[2023-03-21] MEDS: OXYTOCIN 30 UNITS in 0.9% NS 30 UNIT/500 ML INFUS.BAG IVPB SCH (10:41)
[2023-03-21] MEDS: ELECTROLYTE-148 SOLN 1,000 ML IV SCH (10:41)
[2023-03-21] MEDS ORDERED: SENNOSIDES/DOCUSATE COMBO (SENNA PLUS) TABLET (UD) PO PRN (22:00)
== END 2023-03-21 18:45 | disposition home or self-care (01) | DRG 806 ==
LOC: JDEL 06:00 → JLDR 06:20 → J3W 15:25
PROVIDERS: ADMIT Student in an Organized Health Care Education/Training Program; ATTEND Obstetrics & Gynecology
PROC: 10E0XZZ Delivery of Products of Conception, External Approach (ICD-10-PCS; principal; 2023-03-20)
DX: O99.824 Streptococcus B carrier state complicating childbirth (principal); O36.0930 Maternal care for other rhesus isoimmunization, third trimester, not applicable or unspecified; Z37.0 Single live birth; Z3A.40 40 weeks gestation of pregnancy
CPT/HCPCS: 36415; 36600; 80053; 80307; 81003; 82803; 83986-QW; 85025; 85461; 85610; 85730; 86780; 86850; 86870; 86900; 86901; 86902; 87340; 87389; C9803-CS; U0003; U0005

== ENCOUNTER 2023-03-24 16:30 | Emergency (ER) | payer BC, OTHER ==
[2023-03-24 16:41] VITALS: RESP 16; BMI 28.3
[2023-03-24 18:05] VITALS: BP 123/80; PULSE 91; TEMP 98.4
[2023-03-24 18:19] LABS: BASO % 0.5 % (0-2.0); EOS % 3.1 % (0-4.5); HEMATOCRIT 33.5 % (32.4-45.2); HEMOGLOBIN 11.4 GM/dL (10.7-15.3); MCH 28.6 pg (25.7-33.7); MEAN PLT VOLUME 9.4 fl (7.5-11.1); MONO % 8.5 % (3.8-10.2); NEUT % 73.9 % (42.8-82.8); PLATELET COUNT 247 10^3/uL (134-434); RBC 3.99 M/mm3 (3.60-5.2); RDW 14.2 % (11.6-15.6); WHITE BLOOD COUNT 8.9 K/mm3 (4.0-10.0)
[2023-03-24 18:22] LABS: EPI CELLS 27 /uL (0-25.1); HYALINE CASTS 1 /uL (0-3.1); PH,URINE 7.5 (5.0-8.0); URINE APPEARANCE CLEAR; URINE BACTERIA 68 /uL (0-1359); URINE BILIRUBIN NEGATIVE (NEGATIVE); URINE COLOR YELLOW; URINE GLUCOSE (UA) NEGATIVE (NEGATIVE); URINE KETONE NEGATIVE (NEGATIVE); URINE LEUK ESTERASE 2+ (NEGATIVE); URINE NITRITE NEGATIVE (NEGATIVE); URINE PROTEIN NEGATIVE (NEGATIVE); URINE RBC 352 /uL (0-23.9); URINE UROBILINOGEN 0.2 mg/dL (0.2-1.0); URINE WBC 83 /uL (0-25.8)
[2023-03-24 18:33] LABS: POTASSIUM 3.8 mmol/L (3.5-5.1)
[2023-03-24 18:35] LABS: CALCIUM 8.5 mg/dL (8.5-10.1)
[2023-03-24 18:36] LABS: ALBUMIN 2.9 g/dl (3.4-5.0); BLOOD UREA NITROGEN 3.9 mg/dL (7-18); MAGNESIUM 1.8 mg/dL (1.8-2.4)
[2023-03-24 18:39] LABS: CREATININE 0.5 mg/dL (0.55-1.3); PHOSPHOROUS 3.4 mg/dL (2.5-4.9)
[2023-03-24 18:40] LABS: BILIRUBIN,TOTAL 0.3 mg/dL (0.2-1); TOT PROT 6.3 g/dl (6.4-8.2)
[2023-03-24 19:23] LABS: N-TERMINAL BNP 17.1 pg/ml (5-125)
== END 2023-03-24 20:14 | disposition home or self-care (01) ==
LOC: JER 16:30
DX: R22.43 Localized swelling, mass and lump, lower limb, bilateral (principal); R22.33 Localized swelling, mass and lump, upper limb, bilateral; O12.05 Gestational edema, complicating the puerperium; Z20.822 Contact with and (suspected) exposure to COVID-19
CPT/HCPCS: 0241U-QW; 36415; 71045-TC-FY; 80053; 81003; 83735; 83880; 84100; 84484; 84703; 85025; 86850; 86870; 86900; 86901; 86902; 87086; 93005; 93010; 93970-TC; 99285-25